=== PATIENT | female | born 1965 | race Caucasian/White ===

== ENCOUNTER → 2017-07-01 08:48 | Outpatient (CLI) | payer BC, SELFPAY ==
--- NOTE | 2017-07-01 08:56 | US_ITS ---
US abdomen limited: HISTORY: ITS.REASON: ELEVATED LIVER ENZYMES ORDERING PHYSICIAN: Darron Chauhan MD PATIENT AGE: 51 years COMPARISON: None FINDINGS: PANCREAS: Unremarkable. No obvious mass or abnormal fluid collection. No ductal dilatation LIVER: Fatty liver RIGHT KIDNEY: Unremarkable. Normal size and echogenicity. No hydronephrosis GALLBLADDER: No stones, gallbladder wall thickening, pericholecystic fluid, or biliary dilatation. There is some sludge noted within the gallbladder. IMPRESSION: Mild amount of gallbladder sludge with fatty liver otherwise negative limited abdominal ultrasound
== END ==
PROVIDERS: Family Provider Family Medicine; PCP Family Medicine; Visit Provider Family Medicine
DX: R74.8 Abnormal levels of other serum enzymes (principal)
CPT/HCPCS: 76705

== ENCOUNTER → 2018-04-21 10:00 | Outpatient (POV) | payer BC, SELFPAY | PROVIDERS: Visit Provider Dermatology | DX: Z00.00 Encounter for general adult medical examination without abnormal findings (principal) ==

== ENCOUNTER → 2019-07-21 16:47 | Outpatient (CLI) | payer BC, SELFPAY ==
--- NOTE | 2019-07-21 16:49 | MM_ITS ---
PROCEDURE: MM DIG SCREENING MAMM BI W/CAD Digital Breast Tomosynthesis Included CLINICAL INDICATION: SCREENING There is no personal or family history of breast cancer. COMPARISON: DIGMAMMS MAMMOGRAM SCREEN-WASH OPERATOR N/C from 11/17/2007 DIGMAMMS MAMMOGRAM SCREEN-WASH OPERATOR N/C from 08/14/2009 DMSB DIG MAMM-SCREEN SOL from 09/21/2013 TECHNIQUE: Standard CC and MLO images and 3D Tomosynthesis was obtained. R2 CAD reviewed. FINDINGS: The breasts are composed primarily of fat with minimal scattered fibroglandular densities in each breast. There are scattered tiny benign-appearing microcalcifications in each breast. There is no suspicious lesion in either breast and no suspicious microcalcifications. IMPRESSION: Fatty type breast parenchyma with no suspicious lesions seen BI-RAD Category: 2 Benign Finding(s) FOLLOW-UP: 1YR 1 Year Follow-up (A letter has been sent to the patient regarding results of the study.) Dictated by: Dr. Jae Dumont MD 07/24/2019 15:[address] Jae Dumnot MD in [place] 07/24/2019 15:50
== END ==
PROVIDERS: Visit Provider Family Medicine
DX: Z12.31 Encounter for screening mammogram for malignant neoplasm of breast (principal)
CPT/HCPCS: 77063; 77067

== ENCOUNTER 2020-07-12 13:01 | Outpatient (RCR) | payer BC, SELFPAY ==
--- NOTE | 2020-07-12 14:02 | HMH.OTOPEV ---
OT Inpatient Evaluation Rehab OT Outpatient Eval Start: 07/12/20 13:32 Freq: Status: Active Protocol: Document 07/12/20 13:32 RMARSHALL (Rec: 07[facility]12[facility]20 14[facility]02 [id number] Electronically Signed By Keysha Mueller OT 07/12/20 13:32 Outpatient Therapy Subjective History Subjective History Pt seen this date for initial evaluation. Pt reports feeling pain in the R shoulder since yesterday afternoon. The shoulder is sore to touch as well as painful to actively move. Pt is able to be passively ranged w/o pain. Pt is unable to recall an event causing this, however, she supects sleeping with her R arm overhead all night to be the cause. Pt is R hand dominant. Pt reports that ice has helped the pain so far, she has also been prescirbed a steroid pack. Chief Complaint Pain,Weakness Symptom Type Ache,Burning Symptoms Relieved By Rest/Positioning,Heat,Ice, Prescription Meds Symptoms Aggravated By Physical Activity,Lifting Prior Functional Limitations None Current Functional Limitations Reaching,Lifting,Housework, Dressing,Sleeping Symptom Description Constant but Variable,Pain at Rest,Activity Dependent Level of pain today (0-10) 1 Pain scale - at its best (0-10) 1 Pain scale - at its worst (0-10) 7 Shoulder/Elbow Eval Shoulder Objective Measurements Shoulder ROM Right Shoulder ROM Limitations Muscle Weakness,Pain Shoulder Abduction Active Range of 85 Motion (degrees) Shoulder Flexion Active Range of Motion 51 (degrees) Query Text: Shoulder External Rotation Active Range 65 of Motion (degrees) Shoulder Internal Rotation Active Range 65 of Motion (degrees) pain with active ROM shoulder exam right standard decreased ROM shoulder exam standard right Shoulder MMT Shoulder Abduction Strength Grade 3- Fair- Shoulder Flexion Strength Grade 3- Fair- Shoulder External Rotation Strength 3- Fair- Grade Shoulder Internal Rotation Strength 3- Fair- Grade Shoulder Strength Patient Testing Sitting Position Shoulder Special Tests Shoulder Dao-Ney Impingement
== END 2020-07-12 13:05 | disposition home or self-care (01) ==
LOC: OT 13:01
PROVIDERS: Visit Provider Nurse Practitioner Family
DX: M25.511 Pain in right shoulder (principal)
CPT/HCPCS: 97014; 97110; 97166; G0283

== ENCOUNTER → 2021-01-17 10:37 | Outpatient (CLI) | payer BC, SELFPAY ==
[2021-01-17 11:40] LABS: Coronavirus 19 IgG Antibody Negative (Negative); Coronavirus 19 IgM Antibody Negative (Negative)
== END ==
PROVIDERS: PCP Family Medicine; Visit Provider Family Medicine
DX: Z20.822 Contact with and (suspected) exposure to COVID-19 (principal)
CPT/HCPCS: 36415; 86328

== ENCOUNTER → 2021-05-31 12:02 | Outpatient (CLI) | payer BC, SELFPAY ==
[2021-05-31 12:33] LABS: Adenovirus,PCR Not Detected (NotDetected); Bordetella Pertussis Not Detected (NotDetected); Chlamydophila Pneumoniae, PCR Not Detected (NotDetected); Coronavirus 19, PCR Not Detected (NotDetected); Coronavirus 229E Not Detected (NotDetected); Coronavirus NL63 Not Detected (NotDetected); Coronavirus OC43 Not Detected (NotDetected); Coronovirus HKU1,PCR Not Detected (NotDetected); Human Metapneumovirus Not Detected (NotDetected); Influenza A, PCR Not Detected (NotDetected); Influenza AH1, 2009 Not Detected (NotDetected); Influenza AH1, PCR Not Detected (NotDetected); Influenza AH3,PCR Not Detected (NotDetected); Influenza B, PCR Not Detected (NotDetected); Mycoplasma Pneumoniae, PCR Not Detected (NotDetected); Parainfluenza 1, PCR Not Detected (NotDetected); Parainfluenza 2, PCR Not Detected (NotDetected); Parainfluenza 3, PCR Not Detected (NotDetected); Parainfluenza 4, PCR Not Detected (NotDetected); Respiratory Syncytial Virus Not Detected (NotDetected)
[2021-05-31 13:36] LABS: Basophils # 0.1 K/mm3 (0-0.2); Basophils % 0.6 % (0.1-2.0); Eosinophils # 0.1 K/mm3 (0.0-0.4); Eosinophils % 0.5 % (0.1-12.0); Hemoglobin 14.2 g/dL (12.2-16.2); Lymphocytes % 17.7 % (10-50); Mean Corpuscular HGB Conc 33.1 g/dL (31.8-35.4); Mean Corpuscular Hemoglobin 30.9 pg (27.0-31.2); Mean Corpuscular Volume 93.4 fl (81-99); Mean Platelet Volume 8.1 fl (7.4-10.4); Monocytes # 0.5 K/mm3 (0.1-1.0); Monocytes % 4.4 % (1.7-9.3); Neutrophils # 8.7 K/mm3 (1.8-7.8); Neutrophils % 76.8 % (37.0-80.0); Platelet Count 266 K/mm3 (142-424); Red Cell Distribution Width 14.6 % (11.5-17.5); White Blood Count 11.3 K/mm3 (4.8-10.8)
[2021-05-31 14:32] LABS: Rhinovirus/Enterovirus Detected (NotDetected)
== END ==
PROVIDERS: PCP Physician Assistant; Visit Provider Physician Assistant
DX: Z20.822 Contact with and (suspected) exposure to COVID-19 (principal); B34.1 Enterovirus infection, unspecified
CPT/HCPCS: 36415; 85025; 87581; 87632; 87798; C9803; U0003; U0005

== ENCOUNTER 2021-08-05 10:55 | Emergency (ER) | payer BC, SELFPAY ==
[2021-08-05 11:17] VITALS: BP 171/93; PULSE 120; RESP 19; TEMP 37.5; O2SAT 95; BMI 37.8
[2021-08-05 11:29] LABS: UTC Influenza A Antigen Positive (Negative); UTC Influenza B Antigen Negative (Negative)
--- NOTE | 2021-08-05 11:29 | HMH.EDUTC ---
[facility] [place] Dis[place] Clinical Impression: Influenza A Disposition: Home, Self-Care Condition on Discharge: Good Instructions: Influenza, DI for Influenza -- Adult Additional Instructions: Drink plenty of fluids. Take tylenol or ibuprofen for pain or fever. Take the medications as directed. Follow up with your regular doctor. GO TO THE ER FOR ANY WORSENING SYMPTOMS The cough medication (promethazine dm) will make you drowsy, so don't drive or operate heavy machinery after taking it. Prescriptions: Promethazine/Dextromethorphan [Promethazine-Dm Syrup] 5 ml PO Q6HP PRN #240 ml PRN Reason: Cough Transmission Status: [facility] Benzonatate [Benzonatate 100mg cap] 100 mg PO TIDP PRN #30 cap PRN Reason: Cough Transmission Status: [facility] by [facility] methylPREDNISolone [Medrol] 4 mg PO DIRECTED 6 Days #21 packet Transmission Status: Received by [facility] Azithromycin [Z-Arnoldo 250mg Tab*] 250 mg PO UD DOSE PK #6 tab Transmission Status: Received by [facility] Referrals: Darron Chauhan MD [Primary Care Provider] - Time of Disposition: 12:08 Medical Decision Making - Medical Records Medical records reviewed: No: I reviewed the patient's medical records. - Allen Inquiry Pt receiving controlled substance: No Vital Signs: 08/05/21 11:17 08/05/21 12:13 Temperature 99.5 F 99.5 F Temperature Source Oral Pulse Rate 120 H Pulse Rate [Left] 120 H Respiratory Rate 19 19 Blood Pressure 171/93 H Blood Pressure [Right Arm] 171/93 H Blood Pressure Mean [Right Arm] 119 02 Sat by Pulse Oximetry 95 - Lab Data Lab results reviewed: Yes: I reviewed the patient's lab results. Lab Results 08/05/21 11:17: Influenza Type A Ag Positive A, Influenza Type B Ag Negative [facility] [place] HPI - General Stated complaint: congestion, sore throat, cough, fever Time Seen by Provider: 08/05/21 11:30 Mode of Arrival: Ambulatory Source of Information: Patient Limitations: No Limitations Description of Symptoms (Recalled from Triage Doc. by RN): pt c/o a fever, cough, bilateral ear aches, sinus pain, a productive cough with green sputum. ongoing since yesterday. grandson has rhino. pt works at [employer] where there has been >100 cases of flu A. according to pt. HEENT Symptoms (Recalled from RN notes): Yes Resp Symptoms (Recalled from RN notes): Yes Skin Symptoms (Recalled from RN notes): No MS Symptoms (Recalled from RN notes): No Functional Status (Recalled from RN notes): wnl - History of Present Illness Provider Complaint: She started feeling bad 4 days ago. She has cough, chest congestion, sinus congestion and she has been having a fever and chills. 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 - Related Data Previous Rx's Medication Instructions Recorded Azithromycin [Z-Arnoldo 250mg Tab*] 250 mg PO UD DOSE PK #6 tab 09/28/17 Benzonatate [Tessalon Perle 100mg 100 mg PO TID PRN #30 cap 09/28/17 Cap] Fluticasone Propionate [Flonase 1 - 2 spr NS DAILY #1 bottle 09/28/17 50mcg nasal spray 16gm] predniSONE [Prednisone 10mg Tab 10 mg PO UD DOSE PK #21 pack 09/28/17 Dose-Pack] Azithromycin [Z-Arnoldo 250mg Tab*] 250 mg PO UD DOSE PK #6 tab 08/05/21 Benzonatate [Benzonatate 100mg 100 mg PO TIDP PRN #30 cap 08/05/21 cap] Promethazine/Dextromethorphan 5 ml PO Q6HP PRN #240 ml 08/05/21 [Promethazine-Dm Syrup] methylPREDNISolone [Medrol] 4 mg PO DIRECTED 6 Days #21 08/05/21 packet Allergies Allergy/AdvReac Type Severity Reaction Status Date / Time No Known Allergies Allergy Verified 09/28/17 11:53 - Worker's Comp Is this a Worker's Comp case?: No [facility] History - Hepatitis A Screen Drug use history?: No High risk sexual behaviors?: No History of sexually transmitted infection?: No Currently employed?: No Childcare worker?: No Do you have indoor plumbing?: Yes Do you have electricity?: Yes Attestat
[2021-08-05 12:13] VITALS: BP 171/93; PULSE 120; RESP 19; TEMP 37.5
== END 2021-08-05 12:15 | disposition home or self-care (01) ==
PROVIDERS: Emergency Provider Nurse Practitioner Family; PCP Family Medicine
DX: J10.1 Influenza due to other identified influenza virus with other respiratory manifestations (principal)
CPT/HCPCS: 87804; 99212; G0463

== ENCOUNTER → 2021-08-09 14:38 | Outpatient (CLI) | payer BC, SELFPAY ==
--- NOTE | 2021-08-09 14:54 | XR_ITS ---
FINAL REPORT CLINICAL HISTORY: INFLUENZA, cough for 1 week, nonsmoker, no sx FINDINGS: Two views of the chest were obtained. The heart size and pulmonary vascularity are within normal limits. The mediastinum is normal. No acute pulmonary abnormality is identified. There is no pneumothorax. The bony thorax is intact. IMPRESSION: No active cardiopulmonary disease. Reviewed, Interpreted and Dictated by Jorge Gonsalves III, MD Transcribed by Alfred Ludwig Authenticated by Jorge Gonsalves III, MD on 08/09/2021 04:05:57 PM [facility]
[2021-08-09 16:11] LABS: Basophils # 0.1 K/mm3 (0-0.2); Basophils % 0.8 % (0.1-2.0); Hematocrit 41.5 % (37.0-47.0); Hemoglobin 13.7 g/dL (12.2-16.2); Lymphocytes % 26.9 % (10-50); Mean Corpuscular HGB Conc 32.9 g/dL (31.8-35.4); Mean Corpuscular Hemoglobin 30.4 pg (27.0-31.2); Mean Corpuscular Volume 92.2 fl (81-99); Mean Platelet Volume 8.5 fl (7.4-10.4); Monocytes # 0.4 K/mm3 (0.1-1.0); Monocytes % 5.7 % (1.7-9.3); Neutrophils # 4.9 K/mm3 (1.8-7.8); Neutrophils % 66.5 % (37.0-80.0); Platelet Count 276 K/mm3 (142-424); Red Blood Count 4.51 M/mm3 (4.20-5.40); Red Cell Distribution Width 14.1 % (11.5-17.5); White Blood Count 7.4 K/mm3 (4.8-10.8)
== END ==
PROVIDERS: PCP Physician Assistant; Visit Provider Physician Assistant
DX: J10.1 Influenza due to other identified influenza virus with other respiratory manifestations (principal)
CPT/HCPCS: 36415; 71046; 85025

== ENCOUNTER 2022-02-09 10:56 | Emergency (ER) | payer BC, SELFPAY ==
--- NOTE | 2022-02-09 11:00 | XR_ITS ---
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 Views: 3 views. COMPARISON: No relevant prior studies available. FINDINGS: Bones/joints: Normal. Soft tissues: Normal. IMPRESSION: No acute findings.
--- NOTE | 2022-02-09 11:00 | XR_ITS ---
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 Views: 3 views. COMPARISON: No relevant prior studies available. FINDINGS: Bones/joints: No acute fracture or dislocation. Moderate narrowing of the patellofemoral and medial tibiofemoral compartments. Soft tissues: Normal. IMPRESSION: No acute findings.
[2022-02-09 11:10] VITALS: BP 141/88; PULSE 82; RESP 18; TEMP 36.8; O2SAT 98; BMI 35.4
--- NOTE | 2022-02-09 11:34 | EXP.UTC ---
Discharge Plan Disposition Patient Disposition: Home, Self-Care Condition: Good Prescriptions Prescriptions: New mupirocin 2 % ointment 1 applic topical BID Qty: 22 0RF cephalexin [cephalexin] 500 mg tablet 500 mg PO BID 7 Days Qty: 14 0RF No Action azithromycin 250 MG tablet 250 mg PO UD DOSE PK Qty: 6 0RF Rx Instructions: Take two (2) tablets today, then one (1) tablet days #2 thru #5 prednisone 10 MG tablets,dose pack 10 mg PO UD DOSE PK Qty: 21 0RF benzonatate 100 MG capsule 100 mg PO TID PRN (Reason: Cough) Qty: 30 0RF fluticasone propionate 120 SPR/BOT bottle 1 - 2 spr NS DAILY Qty: 1 0RF Rx Instructions: 1-2 sprays daily in each nostril promethazine-DM 120 ML syrup 5 ml PO Q6HP PRN (Reason: Cough) Qty: 240 0RF azithromycin 250 MG tablet 250 mg PO UD DOSE PK Qty: 6 0RF Rx Instructions: Take two (2) tablets today, then one (1) tablet days #2 thru #5 benzonatate 100 MG capsule 100 mg PO TIDP PRN (Reason: Cough) Qty: 30 0RF methylprednisolone 4 MG tablets,dose pack 4 mg PO DIRECTED 6 Days Qty: 21 0RF Referrals Follow up/Referrals: Darron Chauhan MD [Primary Care Provider] - See instructions Activity Restrictions/Add. Instructions Additional Instructions/Restrictions: keep area clean and dry Clinical Impressions Clinical Impression: Abrasion Instructions Patient Instructions: DI for Abrasion, Tetanus, Diphtheria, Pertussis (Tdap) Vaccine [facility] [place] HPI General Stated [facility]: [email or web address]1030a Knee pain Mode of Arrival: Ambulatory Source of Information: Patient Limitations: No Limitations Time Seen by Provider: 02/09/22 11:35 Description of Symptoms (Recalled from Triage Doc. by RN): PATIENT C/O INJURIES TO BILATERAL KNEES AFTER FALLING ON A SPEED BUMP OUTSIDE OF [facility] TODAY. BILATERAL ABRASIONS NOTED HEENT Symptoms (Recalled from RN notes): No Resp Symptoms (Recalled from RN notes): No Skin Symptoms (Recalled from RN notes): Yes MS Symptoms (Recalled from RN notes): Yes Functional Status (Recalled from RN notes): WNL History of Present Illness Provider Complaint: 56 yr old female C/O INJURIES TO BILATERAL KNEES AFTER FALLING ON A SPEED BUMP OUTSIDE OF [facility] TODAY. BILATERAL ABRASIONS NOTED Related Data Previous Rx's Medication Instructions Recorded azithromycin 250 mg tablet 250 mg PO UD DOSE PK #6 tabs 09/28/17 benzonatate 100 mg capsule 100 mg PO TID PRN Cough #30 caps 09/28/17 fluticasone propionate 50 1 - 2 spr NS DAILY ##1 09/28/17 mcg/actuation nasal spray,suspension prednisone 10 mg tablets in a dose 10 mg PO UD DOSE PK ##21 09/28/17 pack azithromycin 250 mg tablet 250 mg PO UD DOSE PK #6 tabs 08/05/21 benzonatate 100 mg capsule 100 mg PO TIDP PRN Cough #30 caps 08/05/21 methylprednisolone 4 mg tablets in 4 mg PO DIRECTED 6 days #21 08/05/21 a dose pack packets promethazine-DM 6.25 mg-15 mg/5 mL 5 ml PO Q6HP PRN Cough #240 mL 08/05/21 oral syrup cephalexin 500 mg tablet 500 mg PO BID 7 days #14 tabs 02/09/22 mupirocin 2 % topical ointment 1 applic topical BID #22 grams 02/09/22 Allergies Allergy/AdvReac Type Severity Reaction Status Date / Time No Known Allergies Allergy Verified 09/28/17 11:53 Worker's Comp Is this a Worker's Comp case?: No PFSH PFSH 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
[2022-02-09 11:52] VITALS: BP 141/88; PULSE 82; RESP 18; TEMP 36.8; O2SAT 98
== END 2022-02-09 12:02 | disposition home or self-care (01) ==
PROVIDERS: Emergency Provider Nurse Practitioner Family; PCP Family Medicine
DX: S80.212A Abrasion, left knee, initial encounter (principal); S80.211A Abrasion, right knee, initial encounter; W01.198A Fall on same level from slipping, tripping and stumbling with subsequent striking against other object, initial encounter; Y92.512 Supermarket, store or market as the place of occurrence of the external cause; Z23 Encounter for immunization
CPT/HCPCS: 73562; 90471; 90715; 99213; G0463

== ENCOUNTER → 2022-03-14 11:32 | Outpatient (CLI) | payer BC, SELFPAY | PROVIDERS: PCP Family Medicine; Visit Provider Family Medicine | DX: Z20.822 Contact with and (suspected) exposure to COVID-19 (principal) | CPT/HCPCS: 87275; 87276; C9803; U0003; U0005 ==

== ENCOUNTER 2022-03-25 09:09 | Emergency (ER) | payer BC, SELFPAY ==
[2022-03-25 11:18] LABS: UTC Strep Screen (Rapid) Negative (Negative)
[2022-03-25 11:29] VITALS: BP 170/81; PULSE 84; RESP 16; TEMP 37.1; O2SAT 96; BMI 37.8
--- NOTE | 2022-03-25 11:39 | EXP.UTC ---
Discharge Plan Disposition Patient Disposition: Home, Self-Care Condition: Good Prescriptions Prescriptions: New dicyclomine 10 mg capsule 10 mg PO TID PRN (Reason: cramping) Qty: 12 0RF No Action azithromycin 250 MG tablet 250 mg PO UD DOSE PK Qty: 6 0RF Rx Instructions: Take two (2) tablets today, then one (1) tablet days #2 thru #5 prednisone 10 MG tablets,dose pack 10 mg PO UD DOSE PK Qty: 21 0RF benzonatate 100 MG capsule 100 mg PO TID PRN (Reason: Cough) Qty: 30 0RF fluticasone propionate 120 SPR/BOT bottle 1 - 2 spr NS DAILY Qty: 1 0RF Rx Instructions: 1-2 sprays daily in each nostril promethazine-DM 120 ML syrup 5 ml PO Q6HP PRN (Reason: Cough) Qty: 240 0RF azithromycin 250 MG tablet 250 mg PO UD DOSE PK Qty: 6 0RF Rx Instructions: Take two (2) tablets today, then one (1) tablet days #2 thru #5 benzonatate 100 MG capsule 100 mg PO TIDP PRN (Reason: Cough) Qty: 30 0RF methylprednisolone 4 MG tablets,dose pack 4 mg PO DIRECTED 6 Days Qty: 21 0RF mupirocin 2 % ointment 1 applic topical BID Qty: 22 0RF cephalexin [cephalexin] 500 mg tablet 500 mg PO BID 7 Days Qty: 14 0RF Referrals Follow up/Referrals: Darron Chauhan MD [Primary Care Provider] - See instructions Activity Restrictions/Add. Instructions Additional Instructions/Restrictions: Drink extra fluids with and between meals. If you have difficulty drinking, try very small amounts of water or suck on ice chips. ? Avoid fruit juices, as these do not replace minerals and can actually increase diarrhea. ? Children and adults can use sports drinks to replenish electrolytes. Younger children and infants should use products formulated for children, like oral rehydration solutions. ? Eat food in small amounts and let your stomach recover. ? Get lots of rest. You may feel tired or weak. ? No greasy or fried foods for the next 24-48 hours BRAT diet Bananas Rice Apples and Parker ? Make sure to drink plenty of liquids ? Return if needed ? Straight to ER if any life threatening symptoms ? You was given an outpatient order for diarrhea panel, please collect specimen and bring back to outpatient lab then call back to the [facility] or follow up with family doctor for results ? Follow up with family doctor in the next 48-72 hours if no improvement or any worsening of symptoms Your blood pressure was elevated in the [facility] today Make sure to follow up for re-evaluation of blood pressure Clinical Impressions Clinical Impression: Diarrhea Instructions Patient Instructions: Diarrhea, Dicyclomine Discharge ED Provider: Lesa Cunningham [facility] [place] HPI General Stated complaint: sore throat, diarrhea Mode of Arrival: Ambulatory Source of Information: Patient Limitations: No Limitations Time Seen by Provider: 03/25/22 11:39 Description of Symptoms (Recalled from Triage Doc. by RN): pt comes in with c/o fever that began last night. sore throat, diarrhea. pt states her stool looks like mucus and is cramping. symptoms began march 14 HEENT Symptoms (Recalled from RN notes): No Resp Symptoms (Recalled from RN notes): Yes Skin Symptoms (Recalled from RN notes): No MS Symptoms (Recalled from RN notes): No Functional Status (Recalled from RN notes): n/a History of Present Illness Provider Complaint: Patient state that she had low grade fever last night and had scratchy throat State that she has been having diarrhea and soft stool on and off since the States that she goes several times daily State that she was worried she may have an infection causing her diarrhea like CDiff or something so she came in to get tested Related Data Previous Rx's Medication Instructions Recorded azithromycin 250 mg tablet 250 mg PO UD DOSE PK #6 tabs 09/28/17 benzonatate 100 mg capsule 100 mg PO TID PRN Cough #30 caps 09/28/17 fluticasone propionate
[2022-03-25 12:09] VITALS: BP 170/81; PULSE 84; RESP 16; TEMP 37.1
[2022-03-25 12:14] LABS: Adenovirus F 40/41, stool Not Detected (NotDetected); Astrovirus Not Detected (NotDetected); Campylobacter Not Detected (NotDetected); Cryptosporidium Not Detected (NotDetected); Cyclospora Cayetanesis Not Detected (NotDetected); Entamoeba histolytica Not Detected (NotDetected); Enteroaggregative E coli Not Detected (NotDetected); Enteropathogenic E coli Not Detected (NotDetected); Enterotoxigenic E coli Not Detected (NotDetected); Giardia lamblia Not Detected (NotDetected); Norovirus Not Detected (NotDetected); Plesimonas Shigalloides, PCR Not Detected (NotDetected); Rotavirus A Not Detected (NotDetected); Salmonella, PCR Not Detected (NotDetected); Sapovirus Not Detected (NotDetected); Shiga-like toxin E coli Not Detected (NotDetected); Shigella Enterovasive E coli Not Detected (NotDetected); Vibrio Cholerae Not Detected (NotDetected); Vibrio, PCR Not Detected (NotDetected); Yersinia Entercolitica, PCR Not Detected (NotDetected)
[2022-03-25 15:28] LABS: Clostridium Difficile A/B, PCR Detected (NotDetected)
== END 2022-03-25 12:10 | disposition home or self-care (01) ==
PROVIDERS: Emergency Provider Nurse Practitioner; PCP Family Medicine
DX: J02.9 Acute pharyngitis, unspecified (principal); R19.7 Diarrhea, unspecified; R05.9 Cough, unspecified; F32.A Depression, unspecified; F41.9 Anxiety disorder, unspecified; Z79.52 Long term (current) use of systemic steroids; Z79.899 Other long term (current) drug therapy
CPT/HCPCS: 87507; 87880; 99213; G0463

== ENCOUNTER 2022-06-12 14:24 | Emergency (ER) | payer BC, SELFPAY ==
[2022-06-12 14:24] VITALS: BP 143/83; PULSE 105; RESP 20; TEMP 38.6; O2SAT 96; BMI 37.0
--- NOTE | 2022-06-12 14:57 | EXP.UTC ---
Discharge Plan Disposition Patient Disposition: Home, Self-Care Condition: Good Prescriptions Prescriptions: New azithromycin [Zithromax] 250 mg tablet 250 mg PO UD DOSE PK Qty: 6 0RF Rx Instructions: Take two (2) tablets today, then one (1) tablet days #2 thru #5 benzonatate [benzonatate] 100 mg capsule 100 mg PO TIDP PRN (Reason: Cough) Qty: 30 0RF methylprednisolone 4 mg Tablets,Dose Pack 4 mg PO DIRECTED Qty: 21 0RF No Action azithromycin 250 MG tablet 250 mg PO UD DOSE PK Qty: 6 0RF Rx Instructions: Take two (2) tablets today, then one (1) tablet days #2 thru #5 prednisone 10 MG tablets,dose pack 10 mg PO UD DOSE PK Qty: 21 0RF benzonatate 100 MG capsule 100 mg PO TID PRN (Reason: Cough) Qty: 30 0RF fluticasone propionate 120 SPR/BOT bottle 1 - 2 spr NS DAILY Qty: 1 0RF Rx Instructions: 1-2 sprays daily in each nostril promethazine-DM 120 ML syrup 5 ml PO Q6HP PRN (Reason: Cough) Qty: 240 0RF azithromycin 250 MG tablet 250 mg PO UD DOSE PK Qty: 6 0RF Rx Instructions: Take two (2) tablets today, then one (1) tablet days #2 thru #5 benzonatate 100 MG capsule 100 mg PO TIDP PRN (Reason: Cough) Qty: 30 0RF methylprednisolone 4 MG tablets,dose pack 4 mg PO DIRECTED 6 Days Qty: 21 0RF dicyclomine 10 mg capsule 10 mg PO TID PRN (Reason: cramping) Qty: 12 0RF vancomycin 125 mg capsule 125 mg PO QID 10 Days Qty: 120 0RF mupirocin 2 % ointment 1 applic topical BID Qty: 22 0RF cephalexin [cephalexin] 500 mg tablet 500 mg PO BID 7 Days Qty: 14 0RF Referrals Follow up/Referrals: Darron Chauhan MD [Primary Care Provider] - See instructions Activity Restrictions/Add. Instructions Additional Instructions/Restrictions: Drink plenty of fluids. Take tylenol or ibuprofen for pain or fever. Take the medications as directed. Follow up with your regular doctor. GO TO THE ER FOR ANY WORSENING SYMPTOMS Clinical Impressions Clinical Impression: Acute viral syndrome, Bronchitis Stand Alone Forms Stand Alone Forms: Work/School Release Instructions Patient Instructions: Acute Bronchitis, DI for Acute Bronchitis, DI for Viral Syndrome Discharge ED Provider: Jas Patton [facility] [place] HPI General Stated complaint: Headache fever bodyaches Time Seen by Provider: 06/12/22 14:57 History of Present Illness Provider Complaint: She states that for the past 1 day she has had sinus congestion, sore throat, cough, chest congestion, and malaise. Related Data Previous Rx's Medication Instructions Recorded azithromycin 250 mg tablet 250 mg PO UD DOSE PK #6 tabs 09/28/17 benzonatate 100 mg capsule 100 mg PO TID PRN Cough #30 caps 09/28/17 fluticasone propionate 50 1 - 2 spr NS DAILY ##1 09/28/17 mcg/actuation nasal spray,suspension prednisone 10 mg tablets in a dose 10 mg PO UD DOSE PK ##21 09/28/17 pack azithromycin 250 mg tablet 250 mg PO UD DOSE PK #6 tabs 08/05/21 benzonatate 100 mg capsule 100 mg PO TIDP PRN Cough #30 caps 08/05/21 methylprednisolone 4 mg tablets in 4 mg PO DIRECTED 6 days #21 08/05/21 a dose pack packets promethazine-DM 6.25 mg-15 mg/5 mL 5 ml PO Q6HP PRN Cough #240 mL 08/05/21 oral syrup cephalexin 500 mg tablet 500 mg PO BID 7 days #14 tabs 02/09/22 mupirocin 2 % topical ointment 1 applic topical BID #22 grams 02/09/22 dicyclomine 10 mg capsule 10 mg PO TID PRN cramping #12 caps 03/25/22 vancomycin 125 mg capsule 125 mg PO QID 10 days #120 caps 03/25/22 azithromycin 250 mg tablet 250 mg PO UD DOSE PK #6 tabs 06/12/22 (Zithromax) benzonatate 100 mg capsule 100 mg PO TIDP PRN Cough #30 caps 06/12/22 methylprednisolone 4 mg tablets in 4 mg PO DIRECTED #21 tabs 06/12/22 a dose pack Allergies Allergy/AdvReac Type Severity Reaction Status Date / Time No Known Allergies Allergy Verified 03/25/22 11:31 [facility] Disclaimer: The information contained in
[2022-06-12 15:07] LABS: UTC Influenza A Antigen Negative (Negative); UTC Influenza B Antigen Negative (Negative)
[2022-06-12 15:52] VITALS: BP 143/83; PULSE 105; RESP 20; TEMP 38.6; O2SAT 96
== END 2022-06-12 15:52 | disposition home or self-care (01) ==
PROVIDERS: Emergency Provider Nurse Practitioner Family; PCP Family Medicine
DX: J40 Bronchitis, not specified as acute or chronic (principal)
CPT/HCPCS: 87804; 99212; 99213; C9803; G0463; U0003; U0005

== ENCOUNTER 2022-07-30 15:30 | Outpatient (RCR) | payer BC, SELFPAY | END 2022-07-30 15:35 | disposition home or self-care (01) | LOC: PT 15:30 | PROVIDERS: PCP Family Medicine; Visit Provider Family Medicine | DX: M25.561 Pain in right knee (principal) | CPT/HCPCS: 97110; 97163; 97530 ==

== ENCOUNTER → 2022-12-18 10:15 | Outpatient (CLI) | payer BC, SELFPAY ==
--- NOTE | 2022-12-18 10:20 | MM_ITS ---
PROCEDURE INFORMATION: Exam: MG Bilateral Screening 3D Mammography Exam date and time: 12/18/2022 10:18 AM Age: 57 years old Clinical indication: Screening mammogram TECHNIQUE: Imaging protocol: Bilateral Screening tomosynthesis and 2D mammography including computer-aided detection (CAD) when performed. COMPARISON: 1. MG MM DIG SCREENING MAMM BI W/CAD 07/21/2019 4:51 PM 2. MG DMSB DIG MAMM-SCREEN SOL 09/21/2013 4:48 PM 3. MG DIGMAMMS MAMMOGRAM SCREEN-NURSE OB N/C 08/14/2009 9:26 AM 4. MG DIGMAMMS MAMMOGRAM SCREEN-NURSE OB N/C 11/17/2007 9:26 AM FINDINGS: MAMMOGRAPHY: Breast composition: The breasts are almost entirely fatty. Mass: None. Architectural distortion: No new or suspicious architectural distortion. Calcifications: Stable benign-appearing calcifications are present. No new or suspicious cluster of microcalcifications have developed. Asymmetric density: No new or suspicious asymmetric density is present Skin thickening: None. Axillary adenopathy: None. IMPRESSION: No mammographic evidence of malignancy. Recommend annual screening mammography unless otherwise clinically indicated. ASSESSMENT: BI-RADS category 2: Benign
== END ==
PROVIDERS: PCP Family Medicine; Visit Provider Family Medicine
DX: Z12.31 Encounter for screening mammogram for malignant neoplasm of breast (principal)
CPT/HCPCS: 77063; 77067

== ENCOUNTER 2023-03-30 10:51 | Emergency (ER) | payer BC, SELFPAY ==
[2023-03-30 11:00] VITALS: BP 152/80; PULSE 87; RESP 18; TEMP 37.1; O2SAT 97; BMI 38.7
--- NOTE | 2023-03-30 11:24 | EXP.UTC ---
Discharge Plan Disposition Patient Disposition: Home, Self-Care Condition: Good Prescriptions Prescriptions: New benzonatate [benzonatate] 100 mg capsule 100 mg PO TIDP PRN (Reason: Cough) Qty: 30 0RF methylprednisolone 4 mg Tablets,Dose Pack 4 mg PO DIRECTED Qty: 21 0RF amoxicillin-pot clavulanate 875-125 mg Tablet 1 tab PO Q12H Qty: 20 0RF No Action alprazolam 0.25 mg tablet See Rx Instructions .ROUTE .COMPLEX Patient Comments: TAKE 1/2 (ONE-HALF) TABLET BY MOUTH IN THE MORNING AND 1 TABLET IN THE EVENING Rx Instructions: TAKE 1/2 (ONE-HALF) TABLET BY MOUTH IN THE MORNING AND 1 TABLET IN THE EVENING duloxetine 60 mg capsule,delayed release(DR/EC) 60 mg PO DAILY Patient Comments: TAKE 1 CAPSULE BY MOUTH ONCE DAILY Referrals Follow up/Referrals: Darron Chauhan MD [Primary Care Provider] - See instructions Activity Restrictions/Add. Instructions Additional Instructions/Restrictions: Drink plenty of fluids. Take tylenol or ibuprofen for pain or fever. Take the medications as directed. Follow up with your regular doctor. GO TO THE ER FOR ANY WORSENING SYMPTOMS Clinical Impressions Clinical Impression: Bronchitis, Sinusitis Instructions Patient Instructions: DI for Sinusitis, DI for Acute Bronchitis Discharge ED Provider: Jas Patton [facility] General Stated complaint: COUGH, CONGESTION, FEVER Mode of Arrival: Ambulatory Source of Information: Patient Limitations: No Limitations Time Seen by Provider: 03/30/23 11:23 Description of Symptoms (Recalled from Triage Doc. by RN): Productive cough, nasal congestion, and low grade fever HEENT Symptoms (Recalled from RN notes): Yes Resp Symptoms (Recalled from RN notes): No Skin Symptoms (Recalled from RN notes): No MS Symptoms (Recalled from RN notes): No Functional Status (Recalled from RN notes): n/a History of Present Illness Provider Complaint: She states that for the past 2 weeks she has had sinus congestion. She states that her symptoms are worsening. Related Data Home Medications Medication Instructions Recorded Confirmed alprazolam 0.25 mg tablet See Rx Instructions .Route .COMPLEX 03/30/23 03/30/23 duloxetine 60 mg capsule,delayed 60 mg PO DAILY 03/30/23 03/30/23 release Previous Rx's Medication Instructions Recorded amoxicillin 875 mg-potassium 1 tab PO Q12H #20 tabs 03/30/23 clavulanate 125 mg tablet benzonatate 100 mg capsule 100 mg PO TIDP PRN Cough #30 caps 03/30/23 methylprednisolone 4 mg tablets in 4 mg PO DIRECTED #21 tabs 03/30/23 a dose pack Allergies Allergy/AdvReac Type Severity Reaction Status Date / Time No Known Allergies Allergy Verified 03/30/23 11:17 Worker's Comp Is this a Worker's Comp case?: No [facility] Disclaimer: The information contained in this section may have been updated after the patient was seen, as this information can be updated by other users. Medical History Anxiety Depression Surgical History History of tubal ligation Social History Smoking Status: Unknown if ever smoked alcohol intake: never current occupational status: other Travel in the last 8 weeks: None ROS Obtained: Yes All systems reviewed & no additional complaints except as documented Constitutional Constitutional: Denies fever(s) and Reports poor appetite Eyes Eyes: Reports system reviewed and no additional complaints, except as documented ENT Ears, Nose, Mouth, and Throat: Reports as per HPI Cardiovascular Cardiovascular: Reports system reviewed and no additional complaints, except as documented and Denies chest pain Respiratory Respiratory: Denies shortness of breath, Denies chest congestion, Reports cough, Denies stridor and Denies wheezing Gastrointestinal Gastrointestingal: Cm
[2023-03-30 11:55] VITALS: BP 152/80; PULSE 87; RESP 18; TEMP 37.1; O2SAT 97
== END 2023-03-30 11:55 | disposition home or self-care (01) ==
PROVIDERS: Emergency Provider Nurse Practitioner Family; PCP Family Medicine
DX: J20.9 Acute bronchitis, unspecified (principal); J01.90 Acute sinusitis, unspecified; R50.9 Fever, unspecified; R05.9 Cough, unspecified; R09.81 Nasal congestion
CPT/HCPCS: 99212; 99214; G0463

== ENCOUNTER 2023-06-06 10:17 | Outpatient (CLI) | payer BC, SELFPAY ==
--- NOTE | 2023-06-06 10:29 | ECG_ITS ---
APPROVED REPORT Exam: Resting ECG HR:82 bpm ECG Measurements Heart Rate [address] 154 P 50 QRSd 91 QRS 28 QT 354 T 26 QTc 393 Conclusion SINUS RHYTHM Late R wave progression Isolated Q-wave in III ABNORMAL ECG UNCONFIRMED REPORT Electronically signed by : Joe Bustillo MD 06/07/2023 13:41:32
[2023-06-06 11:10] LABS: Basophils # 0.1 K/mm3 (0-0.2); Basophils % 0.9 % (0.1-2.0); Eosinophils # 0.2 K/mm3 (0.0-0.4); Eosinophils % 1.7 % (0.1-12.0); Hematocrit 38.3 % (37.0-47.0); Hemoglobin 14.6 g/dL (12.2-16.2); Lymphocytes # 2.8 K/mm3 (0.7-4.5); Lymphocytes % 30.5 % (10-50); Mean Corpuscular HGB Conc 38.2 g/dL (31.8-35.4); Mean Corpuscular Hemoglobin 34.5 pg (27.0-31.2); Mean Corpuscular Volume 90.4 fl (81-99); Mean Platelet Volume 8.1 fl (7.4-10.4); Monocytes # 0.5 K/mm3 (0.1-1.0); Monocytes % 5.2 % (1.7-9.3); Neutrophils # 5.6 K/mm3 (1.8-7.8); Neutrophils % 61.7 % (37.0-80.0); Platelet Count 221 K/mm3 (142-424); Red Blood Count 4.24 M/mm3 (4.20-5.40); Red Cell Distribution Width 14.1 % (11.5-17.5); White Blood Count 9.1 K/mm3 (4.8-10.8)
[2023-06-06 11:34] LABS: Chloride 103 mmol/L (98-107); Potassium 4.8 mmoL/L (3.5-5.1); Sodium 140 mmol/L (136-145)
[2023-06-06 11:37] LABS: Alanine Aminotransferase 99 U/L (12-78); Albumin Level 4.1 g/dl (3.5-5.0); Albumin/Globulin Ratio 1.4 (1.1-1.8); Alkaline Phosphatase 94 U/L (38-126); Anion Gap 11.8 mEq/L (5-15); Aspartate Amino Transferase 76 U/L (14-36); Blood Urea Nitrogen 20 mg/dl (7-17); Calcium 9.3 mg/dl (8.4-10.2); Carbon Dioxide 30 mmol/L (22.0-30.0); Creatine Kinase 63 U/L (30-135); Estimated Glomerular Filt Rate 74 ml/min (>60); GFR (African American) 90 ML/MIN (>60); Globulin 2.9 g/dL (1.3-3.2); Glucose 81 mg/dl (74-100)
[2023-06-06 11:47] LABS: CKMB Relative Index 1.6 U/L (0-4.0)
[2023-06-06 11:48] LABS: NT Pro Brain Natriuretic Pep. 36.6 pg/mL (0-125)
[2023-06-06 12:02] LABS: Troponin I < 0.01 ng/ml (0.00-0.034)
[2023-06-06 13:16] LABS: Thyroid Stimulating Hormone 2.89 uIU/mL (0.465-4.68)
== END 2023-06-06 23:59 ==
LOC: LAB 10:19
PROVIDERS: PCP Family Medicine; Visit Provider Physician Assistant
DX: R06.02 Shortness of breath (principal); R07.9 Chest pain, unspecified; R00.2 Palpitations
CPT/HCPCS: 36415; 80053; 82550; 82553; 83880; 84443; 84484; 85025; 93005; 93225

== ENCOUNTER 2023-07-07 16:08 | Outpatient (CLI) | payer BC, SELFPAY ==
[2023-07-07 16:40] LABS: Hemoglobin A1C 5.1 % (4.0-6.0)
[2023-07-07 17:04] LABS: Alanine Aminotransferase 80 U/L (12-78); Albumin Level 4.3 g/dl (3.5-5.0); Alkaline Phosphatase 102 U/L (38-126); Aspartate Amino Transferase 66 U/L (14-36); Bilirubin,Indirect 1.1 mg/dL (0.0-0.9); Bilirubin,Total 1.1 mg/dl (0.2-1.3); Bilirubin,Unconjugated 1.1 mg/dL (0.0-1.1); Chol/HDL Ratio 4.4 (1-3.5); Cholesterol 198 mg/dl (140-200); HDL Cholesterol 45 mg/dl (40-60); Total Protein,Serum 7.1 g/dl (6.3-8.2); Triglycerides 140 mg/dl (30-150); VLDL Cholesterol 28 mg/dL (0-40)
[2023-07-07 17:15] LABS: Direct LDL Cholesterol 97.58 mg/dL (100-129)
== END 2023-07-07 23:59 ==
LOC: LAB 16:09
PROVIDERS: PCP Family Medicine; Visit Provider Internal Medicine
DX: R07.9 Chest pain, unspecified (principal); R00.2 Palpitations; R79.89 Other specified abnormal findings of blood chemistry; R94.31 Abnormal electrocardiogram [ECG] [EKG]; K30 Functional dyspepsia; Z13.1 Encounter for screening for diabetes mellitus; Z79.899 Other long term (current) drug therapy
CPT/HCPCS: 36415; 80061; 80076; 83036

== ENCOUNTER 2023-07-15 10:42 | Outpatient (CLI) | payer BC, SELFPAY ==
--- NOTE | 2023-07-15 10:43 | CA_ITS ---
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: Dyan White, RCS, RVS Ht: 5 ft 1 in Wt: 210lbs BSA: 1.93 BP: 148/81 mmHg Indications: CP, Abn EKG, Palpitations 2D Dimensions IVSd 1.16 cm LVEF (Visual) 78.60 % PWd 1.27 cm LA Volume 43.30 mL LVDd 4.92 cm LA Volume Index 21.90 mL/m2 (M/F) 16-34 LVDs 2.59 cm Left Atrium 3.69 cm M-Mode Dimensions RVDd 1.78 cm (0.9-2.6) LA Diam 3.44 cm (1.9-4.0) LVDd 4.91 cm (3.5-5.7) LVDs 3.70 cm (3.5-5.7) IVSd 1.08 cm (0.6-1.1) PWd 0.91 cm (0.6-1.1) EF (Teich) 48.80% EPSs 0.38 cm FS 24.60% EDV (Teich) 113.40 mL ESV (Teich) 58.10 mL LV Diastology E Decel Time 260 (160-240 msec) E/A Ratio 0.87 MED A' 10.50 cm/s LAT A' 13.30 cm/s Aortic Valve ELISE Index 1.26 cm2/m2 AoV Peak Jose. 135.0 (50-130 cm/s) AI PHT 509.00 ms AO Peak GR. 7.30 mmHg AO Mean GR. 3.70 (<5 mmHg) AO VTI 30.2 (18-25 cm) ELISE (VTI) 2.49 (2.5-4.5 cm2) Mitral Valve MV A Velocity 85.0 (40-130 cm/s) E/A Ratio 0.87 Pulmonary Valve PV Peak Velocity 76.0 (50-150 cm/s) Left Ventricle The left ventricle is normal size. The left ventricular systolic function is normal. The left ventricular ejection fraction is within the normal range. There is increased LV wall thickness. There is normal LV segmental wall motion. The left ventricular diastolic function is normal. LVEF is 55%. Right Ventricle The right ventricle is normal size. The right ventricular systolic function is normal. Atria The left atrium size is normal. The right atrium size is normal. Aortic Valve The aortic valve is mildly thickened. Mild aortic regurgitation. There is no aortic valvular stenosis. Mitral Valve The mitral valve leaflets are mildly thickened. No evidence of mitral valve stenosis. Trace mitral regurgitation. Tricuspid Valve The tricuspid valve leaflets are thin and pliable. Trace tricuspid regurgitation. There is insufficient TR jet to estimate RVSP. Pulmonic Valve The pulmonary valve is normal in structure. Trace pulmonic regurgitation. Great Vessels The aortic root is not well-visualized. IVC is normal in size and collapses >50% with inspiration. Pericardium There is no pericardial effusion. Other Information Study Quality: Technically Difficult Conclusion Technically difficult study due to poor acoustic windows. Normal biventricular systolic function. Mild AI. Electronically signed by : Alyssa Garcia MD 07/18/2023 20:46:42
--- NOTE | 2023-07-15 11:20 | NM_ITS ---
APPROVED REPORT Exam: Nuclear Stress Test Indication: palpitations Patient Location: Outpatient Stress Tech: Flaquita Eddy ID Tech:Otilia ChavezANJELT, RT (R)(N) Ht: 5 ft 1 in Wt: 200 lbs Bra Size: 42c HR: 70 bpm BP: 151/61 mmHg BSA: 1.89 m2 Rhythm: NSR TID: 1.29 BMI: 37.7 History: palpitations Procedure: Patient received 0.4 mg of intravenous Lexiscan, resting heart rate 70 bpm, resting blood pressure 151/61 mmHg, with Lexiscan maximum heart rate achieved was 95 bpm which is 85 % of the maximum predicted heart rate and blood pressure was 151/61 mmHg. With Lexiscan, patient denied any complaint of chest pain. Cardiac Stress and Resting SPECT Images: Cardiac Stress and Resting SPECT images were obtained using technetium 99m Myoview 30.3 mCi stress and 10.60 mCi at rest. Resting and stress imaging in supine and prone positions demonstrate no evidence of focal fixed or reversible perfusion defects. There is increased transient ischemic dilatation ratio (TID 1.29), suggestive of possible multivessel disease or balanced ischemia. Gated imaging demonstrates normal global and regional LV systolic function. LVEF is calculated at 57%. Conclusion: No evidence of focal fixed or reversible perfusion defects. There is increased transient ischemic dilatation ratio (TID 1.29), suggestive of possible multivessel disease or balanced ischemia. Gated imaging demonstrates normal global and regional LV systolic function. LVEF is calculated at 57%. Electronically signed by : Alyssa Garcia MD 07/16/2023 13:32:12
[2023-07-15] MEDS: SODIUM CHLORIDE 0.9% 10ML SYR (RAD ONLY) 10 ML IV ×2 (13:49)
[2023-07-15] MEDS: ISOTOPE MYOVIEW (PER STUDY) 1 DOSE IV (13:49)
[2023-07-15] MEDS: REGADENOSON 0.4MG/5ML SYRINGE 0.400000000000000022 MG IV (13:49)
--- NOTE | 2023-07-15 14:56 | CA_ITS ---
APPROVED REPORT Exam: Pharmacologic Technologist: Sandra Cam Ht: 5 ft 1 in Wt: 200 lbs BSA: 1.89 m2 HR: 64 bpm BP: 151/61 mmHg Rhythm: NSR Medical History Medications: Alprazolam,,,,, Vitamin D3,,,,, DulOXETINE,,,,, Aspirn,,,,, Metoprolol Succinate ER,,,,, Stress Test Details Test: LEXISCAN HR Resting HR: 70 bpm Max Heart Rate (APMHR): 164 bpm Max HR Achieved: 95 bpm Target HR (85% APMHR): 139 bpm % of APMHR: 58 Recovery HR: 81 bpm BP Resting BP: 151.0/61.0 mmHg Max BP: 151.0/61.0 mmHg Recovery BP: 147.0/65.0 mmHg ECG Resting ECG: Sinus rhythm Stress ECG: No significant ST changes Arrhythmia: None Clinical Exercise duration: 04:01 min Highest Stage Achieved: Stress ECG Conclusion Symptoms: Dyspnea, dizziness Arrhythmias/Ectopy: None ST-T Changes: No significant ST changes Conclusion: EKG portion unremarkable due to Lexiscan infusion. Myoview images are reported separately. Test Summary REST 13:21 . . 70 . 151/ 61 . . Stage 1 . . . . . . . Myoview Injected Stage 1 01:00 . . 93 . . . . Stage 2 01:00 . . 90 . . . . Stage 3 01:00 . . 85 . 141/ 67 . . Stage 4 01:00 . . 80 . 146/ 64 . . Stage 4 01:01 . . 80 . 146/ 64 . Stop exercise at 04:01 RECOVERY 01:00 . . 79 . 136/ 66 . . RECOVERY 02:00 . . 79 . 147/ 65 . . RECOVERY 02:20 . . 81 . 147/ 65 . . Electronically signed by : Alyssa Garcia MD 07/16/2023 13:30:36
== END 2023-07-15 23:59 ==
LOC: RT 10:43
PROVIDERS: PCP Family Medicine; Visit Provider Internal Medicine
DX: R00.2 Palpitations (principal); R94.31 Abnormal electrocardiogram [ECG] [EKG]; R07.9 Chest pain, unspecified; R79.89 Other specified abnormal findings of blood chemistry; K30 Functional dyspepsia
CPT/HCPCS: 78452; 93017; 93018; 93306; A9502; J2785

== ENCOUNTER 2023-08-13 09:05 | Outpatient (CLI) | payer BC, SELFPAY ==
--- NOTE | 2023-08-13 09:12 | XR_ITS ---
FINAL REPORT TECHNIQUE: Bone mineral density was calculated of the lumbar spine and hip. CLINICAL HISTORY: SCREEING COMPARISON: None FINDINGS: Using L1-4, the bone mineral density of the spine is 0.932 g/cm2, corresponding to T-score of -1. Using the left hip, the bone mineral density of the femoral neck is 0.752 g/cm2, corresponding to a T-score of -0.9. Using the right hip, the bone mineral density of the femoral neck is 0.9 g/cm?, corresponding to a T-score of 0.5. NOTE: T-score: Standard deviation compared with peak bone mass of young adult mean. *Following the recommendations of the International Society of Bone densitometry, classification of hip BMD is based on the lower of two T-scores; total hip or femoral neck. IMPRESSION: Normal bone mineral density of the lumbar spine and bilateral hips. Reviewed, Interpreted and Dictated by Jorge Gonsalves III, MD Transcribed by Jessica Tripp Authenticated and [facility]
== END 2023-08-13 23:59 ==
LOC: RAD 09:07
PROVIDERS: PCP Family Medicine; Visit Provider Family Medicine
DX: Z78.0 Asymptomatic menopausal state (principal)
CPT/HCPCS: 77080

== ENCOUNTER 2023-08-20 15:23 | Outpatient (CLI) | payer BC, SELFPAY ==
--- NOTE | 2023-08-20 15:26 | XR_ITS ---
FINAL REPORT CLINICAL HISTORY: RT KNEE PAIN..fall at [employer] 2 years ago COMPARISON: 02/09/2022 FINDINGS: Right knee Three views were obtained. There is no acute fracture or dislocation. There are mild and moderate degenerative changes. Small joint effusion is identified. IMPRESSION: Degenerative changes and small effusion. Findings are similar to previous. Reviewed, Interpreted and Dictated by Jorge Gonsalves III, MD Transcribed by Gissel Mays Authenticated and [facility]
== END 2023-08-20 23:59 ==
LOC: RAD 15:23
PROVIDERS: PCP Family Medicine; Visit Provider Physician Assistant
DX: M25.561 Pain in right knee (principal)
CPT/HCPCS: 73562

== ENCOUNTER 2023-08-22 11:54 | Outpatient (CLI) | payer BC, SELFPAY ==
[2023-08-22] VITALS (10 sets, daily range): BP systolic 113–152; BP diastolic 65–91; PULSE 54–78; RESP 16–18; O2SAT 97–100; BMI 39.4
--- NOTE | 2023-08-22 11:55 | CT_ITS ---
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 A noncontrast coronary calcium scan was performed. A CT attenuation threshold of 130 Hounsfield units (HU) was used for the detection of calcium in contiguous voxels of 1 sq mm in area to be counted as individual lesions. Bolus tracking in the ascending aorta with a threshold of 180 HU was performed. Immediately afterwards, ECG synchronized cardiac CT was then performed from the cardiac base to apex using retrospective gating with ECG tube current modulation. A total of 85 mL of Isovue 370 mg/mL contrast medium was administered at 5 mL/sec followed by a saline flush using a biphasic injection protocol. A tube voltage of 120 KVp was used. The patient received the following medications prior to the cardiac CT. 75 mg of oral metoprolol 15 mg of oral ivabradine 0.8 mg of sublingual nitroglycerin The average heart rate at the time of acquisition was 52 bpm and regular. Image Reconstruction Transaxial images were reconstructed at 0.67 mm slide thickness. Data was reviewed interactively on an advanced workstation capable of 2 and 3-dimensional displays in all conventional reconstruction formats, including multiplanar reformations, maximum intensity projections, curved multiplanar reformations, and volume rendered reconstructions. When applicable, selected routine images describing the relevant coronary anatomy and pathology were saved and sent to PACS. Complications None Technical Quality Overall image quality was good. Coronary artery opacification was adequate. Total DLP (Dose-Length Product) is 1037.9 mGy-cm. The reported value represents the total of one or more individual components during the CT acquisition of this date and at this time, and as such, the same value may appear in more than one CT report depending on the interpreting/reporting physicians. COMPARISON None FINDINGS CT Coronary Calcium Scoring LMA (Left Main Artery) = 2 LAD (Left Anterior Descending) = 0 LCX (Left Coronary Circumflex) = 0 RCA (Right Coronary Artery) = 0 Total Calcium Score = 2 using the AJ-130 method. The observed calcium score of 2 is at 72nd percentile for subjects of the same age, sex, and race/ethnicity. The interpretation of the calcium heart score is based on the following continuum*: 0 = no calcified plaque detected (risk of coronary artery disease is very low ??? less than 5%) 1-10 = calcium detected in extremely minimal levels (risk of coronary diseases is still low ??? less than 10%) 11-100 = mild levels of plaque detected with certainty (mild or minimal narrowing of heart arteries is likely) 101-400 = definite,at least moderate levels of plaque detected (relatively high risk of a heart attack within 3-5 years) >401-999 = extensive levels of plaque detected (high risk of heart attack, high levels of vascular disease are present, high likelihood of at least one significant coronary narrowing) *The calcium heart score quantifies the burden of coronary calcification/plaque in the coronary arteries. The calcium heart score is not able to evaluate the presence or burden of non-calcified (i.e. soft) plaque. There is no identifiable calcification in the aortic valve, mitral annulus or mitral valve, pericardium, or myocardium. Coronary CT Angiography The coronary arterial system is right dominant. Quantitative Stenosis Grading: Left Main (LM): The left main originates normally from the left sinus of Valsalva. The LM bifurcates into the left anterior descending artery and left circumflex artery. There is 1 focus of calcified plaque in the LM, but with no luminal stenosis. Left Anterior Descending (LAD) and Diagonal Branches: The LAD gives off 2 diagonal branches. The LAD and its branches are patent with no evidence of atherosclerosis. There is no evidence of LAD-myocardial bridge. Left Circumflex (LCX) and Obtuse Marginals (OM): The LCX gives off 1 Obtuse Marginal (OM) branch(es). The LCX and its branches are patent with no evidence of atherosclerosis. Right Coronary Artery (RCA): The RCA originates normally from the right sinus of Valsalva. The RCA gives off a posterior descending artery (PDA) and posterolateral (PL) branches. The RCA and its branches are patent with no evidence of atherosclerosis. Non-Coronary Cardiac Findings: Analysis of the left ventricular (LV) structure and function was performed after 3-D reconstruction of the LV from axial images, with user-corrected automatic contouring for assessment of LV volumes and user-defined reconstruction from oblique planes for measurement of 3-D cardiac structure and function. -The left ventricle systolic function is normal. -There is no left atrial appendage filling defect. Two right pulmonary veins and two left pulmonary veins drain normally into the left atrium. -No pericardial thickening or calcification. -Central and branch pulmonary arteries in the [id number] are unremarkable. -Thoracic aorta within the visualized thoracic aortic-branches in the [id number] is unremarkable. Extracardiac Structures Incidental finding of calcified mediastinal lymphadenopathy. IMPRESSION -Minimal coronary calcification with an Agatston score = 2 using the AJ-130 method. -The observed calcium score of 2 is at 72nd percentile for subjects of the same age, sex, and race/ethnicity. -No evidence of significant flow-limiting atherosclerosis of the coronary arteries. -CAD-RADS 1. Management recommendations per ACC/AHA guidelines*, as clinically appropriate. -Incidental finding of calcified mediastinal lymphadenopathy. Clinical correlation is suggested. *Recommendations: CAD RADS 0: Reassurance. Consider non-atherosclerotic causes of chest pain. CAD RADS 1: Consider non-atherosclerotic causes of chest pain. Consider preventive therapy and risk factor modification. CAD RADS 2: Consider non-atherosclerotic causes of chest pain. Consider preventive therapy and risk factor modification, particularly for patients with nonobstructive plaque in multiple segments. CAD RADS 3: Consider further functional testing. Consider symptom-guided anti-ischemic and preventive pharmacotherapy as well as risk factor modification per published guideline statements. CAD RADS 4A: Consider further functional testing or invasive coronary angiography with revascularization per published guideline statements. Consider symptom-guided anti-ischemic and preventive pharmacotherapy as well as risk factor modification per published guideline statements. CAD RADS 4B: Invasive coronary angiography recommended with revascularization per published guideline statements. Consider symptom-guided anti-ischemic and preventive pharmacotherapy as well as risk factor modification per published guideline statements. CAD RADS 5: Consider invasive angiography and/or viability assessment with revascularization per published guideline statements. Consider symptom-guided anti-ischemic and preventive pharmacotherapy as well as risk factor modification per published guideline statements. CRITICAL RESULT None COMMUNICATION Per this written report The coronary and cardiac findings of this CCTA were reviewed, reported, and signed by Jairo Garcia MD (Early Breastfeeding Care Specialist) Conclusion Electronically signed by : Alyssa Garcia MD 08/27/2023 15:20:15
[2023-08-22] MEDS: METOPROLOL TARTRATE 25MG TABLET 25 MG (12:31)
[2023-08-22] MEDS: METOPROLOL TARTRATE 50MG TABLET PO (12:32)
[2023-08-22] MEDS: IVABRADINE HCL 7.5MG TABLET PO (12:32)
[2023-08-22] MEDS: NITROGLYCERIN 0.4MG SL TABLET SL (13:30)
[2023-08-22] MEDS: 0.9 % SODIUM CHLORIDE 50 ML VIAL 100 ML IV (13:52)
[2023-08-22] MEDS: SODIUM CHLORIDE 0.9% 10ML SYR (RAD ONLY) 10 ML IV (13:53)
[2023-08-22] MEDS: IOPAMIDOL-370 (76%);100ML BOTTLE 170 ML IV (13:53)
== END 2023-08-22 14:35 | disposition home or self-care (01) ==
PROVIDERS: PCP Family Medicine; Visit Provider Internal Medicine
DX: R07.9 Chest pain, unspecified (principal); R07.89 Other chest pain; R93.1 Abnormal findings on diagnostic imaging of heart and coronary circulation; R00.2 Palpitations; R94.31 Abnormal electrocardiogram [ECG] [EKG]; R79.89 Other specified abnormal findings of blood chemistry; K30 Functional dyspepsia
CPT/HCPCS: 75571; 75574; Q9967

== ENCOUNTER 2023-10-07 07:46 | Outpatient (CLI) | payer BC, SELFPAY ==
--- NOTE | 2023-10-07 07:47 | US_ITS ---
FINAL REPORT CLINICAL HISTORY: Elevated LFT FINDINGS: Sonographic images of the right upper quadrant were obtained. The pancreas is partially obscured. There is fatty infiltration of the liver. The gallbladder appears normal without evidence of gallstones.There is no evidence of biliary ductal dilatation.The common duct measures 4mm. Limited images of the right kidney are unremarkable. IMPRESSION: Fatty infiltration of the liver, otherwise unremarkable right upper quadrant ultrasound. Reviewed, Interpreted and Dictated by Leo Barrow MD Transcribed by Didi Sepulveda Authenticated and [facility]
== END 2023-10-07 23:59 | disposition home or self-care (01) ==
LOC: RAD 07:47
PROVIDERS: PCP Family Medicine; Visit Provider Nurse Practitioner
DX: R79.89 Other specified abnormal findings of blood chemistry (principal)
CPT/HCPCS: 76705

== ENCOUNTER 2023-10-20 09:47 | Outpatient (CLI) | payer BC, SELFPAY ==
[2023-10-20 10:39] LABS: INR 0.99 (0.9-1.1); Prothrombin Time 10.7 seconds (10.1-12.5)
[2023-10-20 11:30] LABS: Alanine Aminotransferase 78 U/L (12-78); Albumin Level 3.8 g/dl (3.5-5.0); Albumin/Globulin Ratio 1.3 (1.1-1.8); Alkaline Phosphatase 85 U/L (38-126); Anion Gap 10.7 mEq/L (5-15); Aspartate Amino Transferase 54 U/L (14-36); Bilirubin,Total 1.2 mg/dl (0.2-1.3); Blood Urea Nitrogen 16 mg/dl (7-17); Calcium 9.5 mg/dl (8.4-10.2); Carbon Dioxide 31 mmol/L (22.0-30.0); Chloride 105 mmol/L (98-107); Estimated Glomerular Filt Rate 86 ml/min (>60); GFR (African American) 104 ML/MIN (>60); Glucose 99 mg/dl (74-100); Potassium 4.7 mmoL/L (3.5-5.1); Sodium 142 mmol/L (136-145); Total Protein,Serum 6.8 g/dl (6.3-8.2)
[2023-10-21 09:15] LABS: CA 19-9 16 U/mL (0-35)
[2023-10-22 12:08] LABS: Fibrosis Score 0.22; Fibrosis Stage F0-F1; NASH Grade N3-SEVERE NASH; NASH Score 0.75; Steatosis Grade S2-S3; Steatosis Score 0.62
[2023-10-22 12:09] LABS: Alpha 2-Macroglobulins, Qn 172; Apolipoprotein A-1 129; Haptoglobin 108
[2023-10-22 12:10] LABS: ALT (SGPT) P5P 72; AST (SGOT) P5P 48; Bilirubin, Total 0.8; GGT 16
[2023-10-22 12:11] LABS: Cholesterol, Total 164; Glucose 97; Triglycerides 160
== END 2023-10-20 23:59 | disposition home or self-care (01) ==
LOC: LAB 09:48
PROVIDERS: PCP Family Medicine; Visit Provider Nurse Practitioner
DX: R79.89 Other specified abnormal findings of blood chemistry (principal); K76.0 Fatty (change of) liver, not elsewhere classified
CPT/HCPCS: 36415; 80053; 85610; 86301

== ENCOUNTER 2024-01-17 11:42 | Emergency (ER) | payer BC, SELFPAY ==
[2024-01-17 12:00] VITALS: BP 158/71; PULSE 85; RESP 19; TEMP 36.9; O2SAT 94; BMI 39.6
--- NOTE | 2024-01-17 12:25 | EXP.UTC ---
Discharge Plan Disposition Patient Disposition: Home, Self-Care Condition: Good Prescriptions Prescriptions: New azithromycin 250 mg tablet 250 mg PO DIRECTED Qty: 6 0RF Rx Instructions: Take two (2) tablets on day #1, then one (1) tablet day #2 thru #5 fluticasone propionate 50 mcg/actuation spray,suspension 1 spray intranasal DAILY Qty: 9.9 0RF No Action alprazolam 0.25 mg tablet 0.25 mg PO DAILY Patient Comments: TAKE 1/2 (ONE-HALF) TABLET BY MOUTH IN THE MORNING AND 1 IN THE EVENING metoprolol succinate 25 mg tablet extended release 24 hr 25 mg PO DAILY Patient Comments: TAKE 1 TABLET BY MOUTH ONCE DAILY naproxen 500 mg tablet 500 mg PO DAILY duloxetine 60 mg capsule,delayed release(DR/EC) 60 mg PO DAILY Patient Comments: TAKE 1 CAPSULE BY MOUTH ONCE DAILY Referrals Follow up/Referrals: Darron Chauhan MD [Primary Care Provider] - See instructions Activity Restrictions/Add. Instructions Additional Instructions/Restrictions: Start antibiotic patient to take as ordered for a full length of time even if you feel better. Sinus infections do not get better overnight. It may take 2-3 days to notice much improvement so be sure to use conservative measures as discussed for symptoms. Flonase 1 spray each nostril daily to help with nasal congestion, sinus and ear pressure/information Increase fluids Humidifier/vaporizer as needed Tylenol and ibuprofen as needed for fever or pain. If symptoms do not improve or get worse return or be seen in the ER Follow-up with primary care this week Clinical Impressions Clinical Impression: Sinusitis Instructions Patient Instructions: DI for Sinusitis Print Language Print Language: Cuban Discharge ED Provider: Keith ([facility] [place] HPI General Stated complaint: head congestion, cough Mode of Arrival: Ambulatory Source of Information: Patient Limitations: No Limitations Time Seen by Provider: 01/17/24 12:25 Description of Symptoms (Recalled from Triage Doc. by RN): PATIENT C/O COUGH, CONGESTION, GREEN/YELLOW NASAL DRAINAGE, AND SORE THROAT FRO APPROX 1 WEEK HEENT Symptoms (Recalled from RN notes): No Resp Symptoms (Recalled from RN notes): No Skin Symptoms (Recalled from RN notes): No MS Symptoms (Recalled from RN notes): No Functional Status (Recalled from RN notes): WNL History of Present Illness Provider Complaint: 58 yr old female presents for c/o head congestion, cough, sinus pressure, yellow/green nasal congestion and sore throat for 1 week Related Data Home Medications ?Medication ?Instructions ?Recorded ?Confirmed alprazolam 0.25 mg tablet 0.25 mg PO DAILY 01/17/24 01/17/24 duloxetine 60 mg capsule,delayed 60 mg PO DAILY 01/17/24 01/17/24 release metoprolol succinate 25 mg 25 mg PO DAILY 01/17/24 01/17/24 tablet,extended release 24 hr naproxen 500 mg tablet 500 mg PO DAILY 01/17/24 01/17/24 Previous Rx's ?Medication ?Instructions ?Recorded azithromycin 250 mg tablet 250 mg PO DIRECTED #6 tabs 01/17/24 fluticasone propionate 50 1 spray intranasal DAILY #9.9 mL 01/17/24 mcg/actuation nasal spray,suspension Allergies Allergy/AdvReac Type Severity Reaction Status Date / Time No Known Allergies Allergy Verified 01/01/24 13:44 Worker's Comp Is this a Worker's Comp case?: No [facility] Disclaimer: The information contained in this section may have been updated after the patient was seen, as this information can be updated by other users. 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) Smoking Status: Never smoker alcohol intake: current alcohol intake frequency: a few times a month substance use type: denies use current occupational status: other Travel in the last 8 weeks: None caffeine: Yes physical activity: walking do you feel safe at home: Yes victim of physical abuse: No victim of emotional abuse: No victim of sexual abuse: No would you like helpful sources: No ROS Obtained: Yes All systems reviewed & no additional complaints except as documented Constitutional Constitutional: Reports system reviewed and no additional complaints, except as documented Eyes Eyes: Reports system reviewed and no additional complaints, except as documented ENT Ears, Nose, Mouth, and Throat: Reports system reviewed and no additional complaints, except as documented, Reports as per HPI, Reports nasal congestion, Reports nasal discharge, Reports post nasal drip, Reports sinus pain, Reports sinus pressure and Reports sore throat Cardiovascular Cardiovascular: Reports system reviewed and no additional complaints, except as documented Respiratory Respiratory: Reports system reviewed and no additional complaints, except as documented Gastrointestinal Gastrointestingal: Reports system reviewed and no additional complaints, except as documented Integumentary/Breasts Skin/Breast: Reports system reviewed and no additional complaints, except as documented Neurologic Neurologic: Reports system reviewed and no additional complaints, except as documented Endocrine Endocrine: Reports system reviewed and no additional complaints, except as documented Hematologic/Lymphatic Henatologic/Lymphatic: Reports system reviewed and no additional complaints, except as documented Allergic/Immunologic Allergic/Immunologic: Reports system reviewed and no additional complaints, except as documented Physical Exam General General appearance: alert and in no apparent distress Head Head exam: atraumatic Eye Eye exam: Present PERRL ENT ENT exam: Present mucous membranes moist and TM's normal bilaterally Expanded ENT Exam Nose exam: Present sinus tenderness Respiratory Respiratory exam: Present normal lung sounds bilaterally Cardiovascular Cardiovascular exam: Present regular rate and normal rhythm Neurological Exam Neurological exam: Present alert and oriented X3 Skin Skin exam: Present warm and intact Medical Decision Making Medical Records Medical records reviewed: Yes I reviewed the patient's medical records. Allen Inquiry Pt receiving controlled substance: No Allen was queried for this patient: No Vital Signs: 01/17/24 12:00 Temperature 98.5 F Temperature Source Oral Pulse Rate [Left Brachial] 85 Respiratory Rate 19 Blood Pressure [Left Arm] 158/71 H Blood Pressure Mean [Left Arm] 100 Blood Pressure Source [Left Arm] Automatic Cuff Blood Pressure Position [Left Arm] Sitting 02 Sat by Pulse Oximetry 94 L Oxygen Delivery Method Room Air
[2024-01-17 12:35] VITALS: BP 158/71; PULSE 85; RESP 19; TEMP 36.9; O2SAT 94
== END 2024-01-17 12:37 | disposition home or self-care (01) ==
PROVIDERS: Emergency Provider Nurse Practitioner Family; PCP Family Medicine
DX: J01.90 Acute sinusitis, unspecified (principal); R05.9 Cough, unspecified
CPT/HCPCS: 99212; 99214; G0463

== ENCOUNTER 2024-05-13 11:53 | Day surgery (SDC) | payer BC, SELFPAY ==
[2024-05-06 13:01] VITALS: BMI 40.0
[2024-05-13 12:04] VITALS: BP 165/95; PULSE 119; RESP 18; TEMP 36.3; O2SAT 97
[2024-05-13] MEDS: LACTATED RINGERS 1000ML 1,000 ML 25 ML IV (12:22)
[2024-05-13 12:29] VITALS: O2SAT 100
--- NOTE | 2024-05-13 12:29 | P.PNANES_ITS ---
[facility] Disclaimer: The information contained in this section may have been updated after the patient was seen, as this information can be updated by other users. Medical History HTN (hypertension) Abnormal nuclear cardiac imaging test Elevated LFTs Abnormal electrocardiogram [ECG] [EKG] Depression Anxiety Surgical History [place] teeth extracted History of tubal ligation Family History Other Heart disease Kidney disease Social History Smoking Status: Never smoker alcohol intake: current alcohol intake frequency: a few times a month substance use type: denies use current occupational status: other Travel in the last 8 weeks: None caffeine: Yes physical activity: walking do you feel safe at home: Yes victim of physical abuse: No victim of emotional abuse: No victim of sexual abuse: No would you like helpful sources: No Have you lived/traveled outside US in past 30 days?: No Contact w/someone who lives/traveled outside US past 30 days?: No Exposure to someone with infectious disease in past 14 days?: No Do you have a fever (greater than 100.4 F or 38 C)?: No Have you tested positive for COVID-19: No Exposed to someone with COVID-19 in past 14 days?: No Do you have a sore throat?: No Do you have a cough?: No Do you have any weakness?: No Are you experiencing any nausea/vomitting?: No Do you have any diarrhea?: No Are you experiencing any unusual bleeding?: No Do you have any muscle aches/pain?: No Do you have any abdominal pain?: No Are you experiencing loss of taste or smell?: No [facility] Anesthesia Checklist Patient Identification Patient Identification: Arm Band Structural Data Admitted From: Home Planned Operative Procedure/s: Colonoscopy Consent for Planned Operative Procedure(s) Verified: Yes Verified Documents: Surgical Consent and History and Physical NPO Status Verified Time NPO: 10:30 (water sips) Additional verifications Anesthesia Reactions: No Hx Blood Transfusions: No Blood Transfusion Reaction: No Airway Assessment Mallampati Score:: Class II C-Spine Mobility Assessed: Yes TMJ Mobility Assessed: Yes Dentition: Good Dentition Neurological Assessment Level of Consciousness: Awake, Alert and Appropriate Anesthesia Plan Anesthesia Risk discussed: Yes Anesthesia Plan: Verified ASA Class: III Anesthesia Type: MAC
--- NOTE | 2024-05-13 12:31 | P.HP_ITS ---
History of Present Illness *Admission Date: 05/13/24 *Reason for visit:: Screening for colon cancer *History of present illness: Mrs. Be is a 58-year-old female who is here for initial screening colonoscopy. The examination is deemed medically necessary for screening. The patient has been seen, interviewed and examined prior to the procedure by both myself and the anesthesia provider. [facility] Disclaimer: The information contained in this section may have been updated after the patient was seen, as this information can be updated by other users. Medical History (Updated 05/13/24 @ 12:34 by Jovi Cantu II, MD) Colon cancer screening HTN (hypertension) Abnormal nuclear cardiac imaging test Elevated LFTs Abnormal electrocardiogram [ECG] [EKG] Depression Anxiety Surgical History [place] teeth extracted History of tubal ligation Family History Other Heart disease Kidney disease Social History Smoking Status: Never smoker alcohol intake: current alcohol intake frequency: a few times a month substance use type: denies use current occupational status: other Travel in the last 8 weeks: None caffeine: Yes physical activity: walking do you feel safe at home: Yes victim of physical abuse: No victim of emotional abuse: No victim of sexual abuse: No would you like helpful sources: No Have you lived/traveled outside US in past 30 days?: No Contact w/someone who lives/traveled outside US past 30 days?: No Exposure to someone with infectious disease in past 14 days?: No Do you have a fever (greater than 100.4 F or 38 C)?: No Have you tested positive for COVID-19: No Exposed to someone with COVID-19 in past 14 days?: No Do you have a sore throat?: No Do you have a cough?: No Do you have any weakness?: No Are you experiencing any nausea/vomitting?: No Do you have any diarrhea?: No Are you experiencing any unusual bleeding?: No Do you have any muscle aches/pain?: No Do you have any abdominal pain?: No Are you experiencing loss of taste or smell?: No Other Medical History Have you received the Flu Vaccine for this season: No Have you received the Pneumonia Vaccine: No Review of Systems Review of Systems Review of systems (narrative): Negative *Cardiovascular Comments: Negative *Gastrointestinal Comments: Negative *Genitourinary Comments: Negative *Musculoskeletal Comments: Negative *Neurologic Comments: Negative Meds Home Medications and Allergies Home Medications ?Medication ?Instructions ?Recorded ?Confirmed ?Type alprazolam 0.25 mg tablet 0.25 mg PO DAILY 01/17/24 05/06/24 History duloxetine 60 mg capsule,delayed 60 mg PO DAILY 01/17/24 05/13/24 History release metoprolol succinate 25 mg 25 mg PO DAILY 01/17/24 05/13/24 History tablet,extended release 24 hr naproxen 500 mg tablet 500 mg PO DAILY 01/17/24 05/13/24 History amlodipine 5 mg tablet 5 mg PO DAILY #30 tabs 03/23/24 05/06/24 Rx New Prescriptions to Start Prescriptions: Allergies Allergy/AdvReac Type Severity Reaction Status Date / Time No Known Allergies Allergy Verified 05/13/24 12:01 Exam Data for Last 24 hours Vital signs and Labs for Last 24 Hours: Temp Pulse Resp BP Pulse Ox O2 Del Method O2 Flow Rate 97.3 F L 119 H 18 165/95 H 97 Nasal Cannula 5 05/13/24 12:04 05/13/24 12:04 05/13/24 12:04 05/13/24 12:04 05/13/24 12:04 05/13/24 12:29 05/13/24 12:29 *Routine HEENT Exam Head: Present normocephalic Eye: Present EOMI and PERRL ENT: Present mucous membranes moist *Routine Neck Exam Neck: Present supple *Routine Respiratory Exam Respiratory: Present CTA bilaterally *Routine Cardiovascular Exam Cardiovascular: Present RRR *Routine Abdominal Exam Abdominal: Present soft and normoactive bowel sounds; Absent tenderness *Routine Rectal Exam Rectal:: deferred *Routine Genitalia Exam Genitalia:: deferred *Routine Extremities Exam Extremities: Absent cyanosis, clubbing or edema *Routine Skin Exam Skin: Present warm; Absent rash *Routine Neurological Exam Neurological: Present alert and oriented X3 Assessment and Plan *Assessment and plan (1) Colon cancer screening: Status: Acute Category: Medical Code(s): Z12.11 - Encounter for screening for malignant neoplasm of colon Plan A/P: 1. Screening for colon cancer is the preprocedural diagnosis. The patient will be anesthetized/sedated using MAC sedation. The patient has been seen and examined. Cardiac and lung assessment prior to the examination is stable. Proceed with planned screening colonoscopy
--- NOTE | 2024-05-13 12:34 | P.PCN_ITS ---
[facility] Procedure Note Date: 05/13/24 Time: 12:46 Procedure Note:: Colonoscopy Procedure Report: Colonoscopy Endoscopist: Jovi Cantu II, MD Referring physician: Victor Manuel Chauhan MD Date of Procedure: May 13, 2024 Equipment: Olympus 190 variable stiffness pediatric colonoscope Sedation: MAC sedation Indication: Ms. Be is a 58-year-old female who is here for initial screening colonoscopy. She reports no abdominal pain, weight loss, change in her bowel habits or rectal bleeding. She reports no family history of colon cancer. Procedure: Prior to the procedure, a history and physical exam was performed, and patient's medications and allergies were reviewed. The risks, benefits and alternatives of the sedation and procedure were discussed with the patient. All questions were answered and informed consent was obtained. The patient was brought to the procedure room. Patient identification and proposed procedure were verified by the physician and the nurse. The patient was placed in a left lateral decubitus position and the scope was passed under direct vision. Throughout the procedure, the patient's blood pressure, pulse, and oxygen saturations were monitored continuously. The colonoscopy was accomplished without difficulty. The patient tolerated the procedure well. Findings: On digital rectal examination there was normal rectal tone. There were no external hemorrhoids. The colonoscope was introduced through the anal canal to the rectum and advanced to the cecum. The ileocecal valve and appendiceal orifice were identified. The scope was advanced a short distance into the ileum which appeared grossly normal. The scope was then withdrawn into the colon. The cecum, ascending and transverse colon and mucosa were grossly normal. There were scattered diverticuli throughout the descending and sigmoid colon (LEFT colon). The rectum itself was normal. Upon retroflexion within the rectum there were grade 1-2 internal hemorrhoids. The preparation was excellent throughout with [place] Preparation Score of 9. The cecal time was 10 minutes. Impression: 1. Left-sided diverticulosis 2. Grade 1-2 internal hemorrhoids Plan: The patient will not require surveillance colonoscopy again for 10 years by ACS guidelines. I would encourage bulking psyllium fiber supplementation on a maintenance basis.
[2024-05-13 12:47] VITALS: BP 131/75; PULSE 98; RESP 16; TEMP 36.3; O2SAT 92
[2024-05-13 12:57] VITALS: BP 115/77; PULSE 97; RESP 16; O2SAT 94
[2024-05-13 13:07] VITALS: BP 119/56; PULSE 95; RESP 16; O2SAT 97
[2024-05-13 13:15] VITALS: BP 131/80; PULSE 87; RESP 16; O2SAT 98
== END 2024-05-13 13:16 | disposition home or self-care (01) ==
PROVIDERS: PCP Family Medicine; Visit Provider Internal Medicine Gastroenterology
PROC: (CPT 45378; principal; 2024-05-13 13:30)
DX: K57.30 Diverticulosis of large intestine without perforation or abscess without bleeding (principal); K64.8 Other hemorrhoids; Z12.11 Encounter for screening for malignant neoplasm of colon
CPT/HCPCS: 45378; J7120

== ENCOUNTER 2024-07-20 07:57 | Outpatient (CLI) | payer BC, SELFPAY ==
--- NOTE | 2024-07-20 07:58 | MM_ITS ---
PROCEDURE INFORMATION: Exam: MG Bilateral Screening 3D Mammography Exam date and time: 07/20/2024 8:06 AM Age: 59 years old Clinical indication: Screening mammogram TECHNIQUE: Imaging protocol: Bilateral Screening tomosynthesis and 2D mammography including computer-aided detection (CAD) when performed. COMPARISON: 1. MG MM DIG SCREENING MAMM BI W/CAD 12/18/2022 10:18 AM 2. MG MM DIG SCREENING MAMM BI W/CAD 07/21/2019 4:51 PM 3. MG DMSB DIG MAMM-SCREEN SOL 09/21/2013 4:48 PM 4. MG DIGMAMMS MAMMOGRAM SCREEN-RELATIONSHIP MGR N/C 08/14/2009 9:26 AM FINDINGS: MAMMOGRAPHY: Breast composition: The breasts are almost entirely fatty. Mass: None. Architectural distortion: No new or suspicious architectural distortion. Calcifications: No new or suspicious calcifications are present Asymmetric density: No new or suspicious asymmetric density is present Skin thickening: None. Axillary adenopathy: None. IMPRESSION: No mammographic evidence of malignancy. Recommend annual screening mammography unless otherwise clinically indicated. ASSESSMENT: BI-RADS category 1: Negative.
== END 2024-07-20 23:59 | disposition home or self-care (01) ==
LOC: RAD 07:57
PROVIDERS: PCP Family Medicine; Visit Provider Physician Assistant
DX: Z12.31 Encounter for screening mammogram for malignant neoplasm of breast (principal)
CPT/HCPCS: 77063; 77067

== ENCOUNTER 2025-03-15 15:38 | Outpatient (CLI) | payer BC, SELFPAY ==
[2025-03-15 20:44] LABS: Coronavirus 19, PCR Not Detected (NotDetected); Influenza A, PCR Not Detected (NotDetected); Influenza B, PCR Not Detected (NotDetected)
--- OUTSIDE RECORDS SUMMARY | 2025-03-17 15:43 | XMS_ITS | Clinical Summary ---
Author Organization Healthcare Address [address] [place] [address] Care Team Providers Care Facilities Assistant Name Role Phone Christopher Chauhan MD Primary Care Provider [phone] Allergies No known active allergies Medications ALPRAZolam (Xanax) 0.25 MG tablet TAKE 1/2 TABLET BY MOUTH EVERY MORNING AND 1 TABLET BY MOUTH EVERY EVENING Active DULoxetine (Cymbalta) [address] capsule Take 1 capsule (60 mg) by mouth 1 (one) time each day. 4 Active metoprolol succinate XL (Toprol-XL) 25 MG 24 hr tablet Take 1 tablet (25 mg) by mouth 1 (one) time each day. 4 Active Na Sulfate-K Sulfate-Mg Sulf 17.5-3.13-1.6 GM/177ML solution 4 Active triamcinolone (Kenalog) 0.1 % cream APPLY CREAM EXTERNALLY TWICE DAILY 4 Active DULOXETINE & LIDOCAINE-MENTH OL CO 60 mg. 3 Active naproxen (Naprosyn) 500 MG tablet TAKE 1 TABLET BY MOUTH TWICE DAILY WITH MEALS 60 tablet 4 Active naproxen (Naprosyn) 500 MG tablet TAKE 1 TABLET BY MOUTH TWICE DAILY WITH MEALS 50 tablet 4 Active Active Problems Problem Noted Date Diagnosed Date Obesity (BMI 35.0-39.9 without comorbidity) 08/11 Severe obesity (BMI 35.0-39.9) with comorbidity 09/01/2023 Social History Tobacco Use Types Packs/Day Years Used Date Smoking Tobacco: Never Smokeless Tobacco: Never Comments Unknown Sex and Gender Information Value Date Recorded Sex Assigned at Not on file Legal Sex Female 3:11 PM EDT Gender Identity Not on file Sexual Orientation Not on file Last Filed Vital Signs Vital Sign Reading Time Taken Comments Blood Pressure 133/83 09/01/2023 2:06 PM EDT Pulse 85 09/01/2023 2:06 PM EDT Temperature - - Respiratory Rate - - Oxygen Saturation 95% 09/01/2023 2:06 PM EDT Inhaled Oxygen Concentration - - Weight 94.8 kg (208 lb 15.9 oz) 09/01/2023 2:06 PM EDT Height 154.9 cm (5' 1 ) 09/01/2023 2:06 PM EDT Body Mass Index 39.49 09/01/2023 2:06 PM EDT Plan of Treatment Health Maintenance Due Date Last Done Comments [facility]-Depression Screening 1966 [facility]-HIV Screening 1966 [facility]-Hepatitis C Screening 1966 [facility]-Infant/Child/Adol SDOH Screenings 1966 [facility]- SDOH Screenings 1984 [facility]-Adult SDOH Screenings 1984 [facility]-Hepatitis B Vaccines (1 of 3 - 19+ 3-dose series) 1985 [facility]-Pap Smear 07/21/1987 [facility]-Cervical Cancer Screening 1996 [facility]-HPV/Cotest 1996 CT Colonography 07/21/2011 Colonoscopy 07/21/2011 FIT-DNA 07/21/2011 FIT 07/21/2011 FOBT 07/21/2011 Sigmoidoscopy 07/21/2011 [facility]-Colorectal Cancer Screening 07/21/2011 [facility]-Breast Cancer Screening 2016 [facility]-Pneumococcal Vaccine: 50 + Years (1 of 1 - PCV) 2016 [facility]-Zoster Vaccines (1 of 2) 2016 [id number] Vaccine (3 - 2024- season) 2025 02/14/2021, 01/24/2021 [facility]-Influenza Vaccine (#1) 2025 [facility]-DTaP,Tdap,and Td Vaccine s (2 - Td or Tdap) 02/10/2032 02/09/2022 [facility]-Obesity Intervention Completed 09/01/2023 HPV Vaccines Aged Out No longer eligi ble based on patient's age to complete this topic [facility]-HIB Vaccines Aged Out No longer e ligible based on patient's age to complete this topic [facility]-Hepatitis A Vaccines Aged Out No longer eligible based on patient's age to complete this topic [facility]-IPV Vaccines Aged Out No longer e ligible based on patient's age to complete this topic [facility]-Rotavirus Vaccines Aged Out No lo nger eligible based on patient's age to complete this topic Insurance ANTH Care Teams Facilities Assistant Relationship Specialty Start Date End Date Christopher Chauhan MD [address] [place] [id number] PCP - General 08/26/23
== END 2025-03-15 23:59 | disposition home or self-care (01) ==
LOC: LAB.DROPOF 03-17 15:38
PROVIDERS: PCP Family Medicine; Visit Provider Nurse Practitioner
DX: J06.9 Acute upper respiratory infection, unspecified (principal)
CPT/HCPCS: 87631

== ENCOUNTER 2025-03-23 06:01 | Day surgery (SDC) | payer BC, SELFPAY ==
--- NOTE | 2025-03-20 10:54 | EXP.HP ---
History of Present Illness *Admission Date: 03/23/25 *History of present illness: Mrs. Be is a 59-year-old female who is here for diagnostic EGD. The patient reports having dysphagia for about a year. She reports food getting along the lower retrosternal region. She may get some relief with belching. She will sometimes have to regurgitate. This is occurring about once a week. She does get heartburn once weekly as well and takes TUMS. This is her first upper endoscopy. The examination is deemed medically necessary for diagnostic EGD. The patient has been seen, interviewed and examined prior to the procedure by both myself and the anesthesia provider. [facility] Disclaimer: The information contained in this section may have been updated after the patient was seen, as this information can be updated by other users. Medical History Viral upper respiratory infection Sinusitis Colon cancer screening HTN (hypertension) Abnormal nuclear cardiac imaging test Elevated LFTs Abnormal electrocardiogram [ECG] [EKG] Depression Anxiety Surgical History [place] teeth extracted History of tubal ligation Family History Other Heart disease Kidney disease Social History Smoking Status: Never smoker alcohol intake: current alcohol intake frequency: a few times a month substance use type: denies use current occupational status: other Travel in the last 8 weeks?: None caffeine: Yes physical activity: walking do you feel safe at home: Yes victim of physical abuse: No victim of emotional abuse: No victim of sexual abuse: No would you like helpful sources: No Have you lived/traveled outside [place] in past 30 days?: No Contact w/someone who lives/traveled outside [place] past 30 days?: No Exposure to someone with infectious disease in past 14 days?: No Do you have a fever (greater than 100.4 F or 38 C)?: No Have you tested positive for COVID-19?: No Exposed to someone with COVID-19 in past 14 days?: No Do you have a sore throat?: No Do you have a cough?: No Do you have any weakness?: No Do you have any diarrhea?: No Are you experiencing any unusual bleeding?: No Do you have any muscle aches/pain?: No Do you have any abdominal pain?: No Are you experiencing loss of taste or smell?: No Other Medical History Have you received the Flu Vaccine for this season: No Have you received the Pneumonia Vaccine: No Review of Systems Review of Systems Review of systems (narrative): Negative *Cardiovascular Comments: Negative *Gastrointestinal Comments: Negative *Genitourinary Comments: Negative *Musculoskeletal Comments: Negative *Neurologic Comments: Negative Meds Home Medications and Allergies Home Medications ?Medication ?Instructions ?Recorded ?Confirmed ?Type alprazolam 0.25 mg tablet 0.25 mg PO DAILY 01/17/24 03/23/25 History duloxetine 60 mg capsule,delayed 60 mg PO DAILY 01/17/24 03/23/25 History release metoprolol succinate 25 mg 25 mg PO DAILY 01/17/24 03/23/25 History tablet,extended release 24 hr amlodipine 5 mg tablet See Rx Instructions .Route 06/15/24 03/23/25 Rx .COMPLEX #90 tabs cholecalciferol (vitamin D3) 50 50 mcg PO DAILY 01/31/25 03/23/25 History mcg (2,000 unit) capsule naproxen 500 mg tablet 500 mg PO DAILY PRN Pain 01/31/25 03/23/25 History azithromycin 250 mg tablet See Rx Instructions PO .COMPLEX #6 03/16/25 03/23/25 Rx (Zithromax Z-Arnoldo) tabs New Prescriptions to Start Prescriptions: Allergies Allergy/AdvReac Type Severity Reaction Status Date / Time No Known Allergies Allergy Verified 03/15/25 18:05 Exam *Routine HEENT Exam Head: Present normocephalic Eye: Present EOMI and PERRL ENT: Present mucous membranes moist *Routine Neck Exam Neck: Present supple *Routine Respiratory Exam Respiratory: Present CTA bilaterally *Routine Cardiovascular Exam Cardiovascular: Present RRR *Routine Abdominal Exam Abdominal: Present soft and normoactive bowel sounds; Absent tenderness *Routine Rectal Exam Rectal:: deferred *Routine Genitalia Exam Genitalia:: deferred *Routine Extremities Exam Extremities: Absent cyanosis, clubbing or edema *Routine Skin Exam Skin: Present warm; Absent rash *Routine Neurological Exam Neurological: Present alert and oriented X3 Assessment and Plan *Assessment and plan (1) Dysphagia: Status: Acute Category: Medical Code(s): R13.10 - Dysphagia, unspecified (2) Regurgitation of food: Status: Acute Category: Medical Code(s): R11.10 - Vomiting, unspecified Plan A/P: 1. Dysphagia is the preprocedural diagnosis. The patient will be anesthetized/sedated using MAC sedation. The patient has been seen and examined. Cardiac and lung assessment prior to the examination is stable. Proceed with planned diagnostic EGD.
[2025-03-22 12:32] VITALS: BMI 41.0
[2025-03-23 06:16] VITALS: BP 147/82; PULSE 94; RESP 18; TEMP 36.5; O2SAT 97
[2025-03-23] MEDS: LACTATED RINGERS 1000ML 1,000 ML 50 ML IV (06:36)
--- NOTE | 2025-03-23 06:48 | EXP.ANES.CKL ---
[facility] Disclaimer: The information contained in this section may have been updated after the patient was seen, as this information can be updated by other users. Medical History Viral upper respiratory infection Sinusitis Colon cancer screening HTN (hypertension) Abnormal nuclear cardiac imaging test Elevated LFTs Abnormal electrocardiogram [ECG] [EKG] Depression Anxiety Surgical History [place] teeth extracted History of tubal ligation Family History Other Heart disease Kidney disease Social History Smoking Status: Never smoker alcohol intake: current alcohol intake frequency: a few times a month substance use type: denies use current occupational status: other Travel in the last 8 weeks?: None caffeine: Yes physical activity: walking do you feel safe at home: Yes victim of physical abuse: No victim of emotional abuse: No victim of sexual abuse: No would you like helpful sources: No Have you lived/traveled outside [place] in past 30 days?: No Contact w/someone who lives/traveled outside [place] past 30 days?: No Exposure to someone with infectious disease in past 14 days?: No Do you have a fever (greater than 100.4 F or 38 C)?: No Have you tested positive for COVID-19?: No Exposed to someone with COVID-19 in past 14 days?: No Do you have a sore throat?: No Do you have a cough?: No Do you have any weakness?: No Do you have any diarrhea?: No Are you experiencing any unusual bleeding?: No Do you have any muscle aches/pain?: No Do you have any abdominal pain?: No Are you experiencing loss of taste or smell?: No [facility] Anesthesia Checklist Patient Identification Patient Identification: Arm Band and Family Structural Data Admitted From: Home Planned Operative Procedure/s: EGD Consent for Planned Operative Procedure(s) Verified: Yes Verified Documents: Surgical Consent NPO Status Verified Time NPO: 00:00 Additional verifications Patient : No Anesthesia Reactions: No Hx Blood Transfusions: No Blood Transfusion Reaction: No Cephalosporin Allergy: No Previous Colonoscopy: Yes Neurological Assessment Level of Consciousness: Awake, Alert, Appropriate and Follows Commands Hx Seizures: No Numbness or tingling in extremities: No Anesthesia Plan Anesthesia Risk discussed: Yes ASA Class: II Anesthesia Type: MAC Preoperative Comments Pre-Operative Comments: Takes metoprolol, probably for heart rate control. Denies hypertention.
--- NOTE | 2025-03-23 06:56 | P.PCN_ITS ---
[facility] Procedure Note Date: 03/23/25 Time: 07:50 Procedure Note:: Upper Endoscopy Procedure Report: Esophagogastroduodenoscopy with cold biopsies and TTS balloon dilation and submucosal injection (epinephrine) Endoscopost: Jovi Cantu II, MD Referring Physician: Cade Chauhan MD Date of Procedure: March 23, 2025 Equipment: Olympus GIF-1100 standard upper endoscope Sedation: MAC sedation Indications: Mrs. Be is a 59-year-old female who is here for diagnostic EGD. The patient reports having dysphagia for about a year and this is primarily to solids (breads and meats). She reports food getting along the lower retrosternal region. She does get relief with belching. She will seldomly have to regurgitate food. This is occurring about once a week. She does get heartburn once weekly as well and takes TUMS. This is her first upper endoscopy. She reports no bloating and reports regular bowel function. The examination is deemed medically necessary for diagnostic EGD. Procedure: Prior to the procedure, a history and physical exam was performed, and patient's medications and allergies were reviewed. The risks, benefits and alternatives of the sedation and procedure were discussed with the patient. All questions were answered and informed consent was obtained. The patient was brought to the procedure room. Patient identification and proposed procedure were verified by the physician and the nurse. The patient was placed in a left lateral decubitus position and the scope was passed under direct vision. Throughout the procedure, the patient's blood pressure, pulse, and oxygen saturations were monitored continuously. The upper GI endoscopy was accomplished without difficulty. The patient tolerated the procedure well. Findings: The scope was passed directly into the upper esophagus and advanced to the third portion of the duodenum. The post bulbar duodenum, ampulla and duodenal bulb were normal with normal mucosa and conniventes. 2 cold biopsies were taken from the second portion of the duodenum for the disaccharidase assay. The scope was withdrawn through a normal duodenal bulb and pylorus into the stomach. There was some mild linear reactive gastropathy of the antrum. The body and fundus of the stomach were normal. Cold biopsies were taken from the antrum. Upon retroflexion there was a 2 cm hiatal hernia. The scope was then withdrawn into the esophagus. There was distal erosive esophagitis with linear superficial erosions and linear ulceration consistent with grade C?D reflux esophagitis (LA classification). There was also a peptic stricture. There was no obvious Ortiz's esophagus. The peptic stricture was dilated from 18 to 20 mm with a TTS hydrostatic balloon. There was some submucosal oozing of blood at the dilation site so 2 cc of 1-10,000 epinephrine was injected submucosally with hemostasis. The remainder of the mid and proximal esophageal mucosa was normal. Impression: 1. Grade C?D reflux esophagitis with peptic stricture status post dilation to 20 mm 2. Small 2 cm hiatal hernia 3. Mild linear antral gastropathy Plan: The patient does have complicated GERD with the reflux esophagitis and I would recommend PPI therapy or Voquezna. I will discuss the findings with the patient and family. I will follow-up the biopsies and disaccharidase assay.
[2025-03-23 07:56] VITALS: BP 143/73; PULSE 108; RESP 18; TEMP 36.2; O2SAT 95
[2025-03-23 08:06] VITALS: BP 106/59; PULSE 99; RESP 16; TEMP 36.2; O2SAT 95
[2025-03-23 08:16] VITALS: BP 110/67; PULSE 93; RESP 18; O2SAT 97
[2025-03-23 08:21] VITALS: BP 110/65; PULSE 91; RESP 18; O2SAT 98
[2025-03-28 18:28] LABS: Interpretation Notes (.); Lactase 15.8 (>/= 14.0); Maltase 99.82 (>/= 110.0); Palatinase 15.8 (>/= 8.5); Reference Notes (.); Sucrase 25.78 (>/= 25.0)
== END 2025-03-23 08:23 | disposition home or self-care (01) ==
PROVIDERS: PCP Family Medicine; Visit Provider Internal Medicine Gastroenterology
PROC: 0DJ08ZZ Inspection of Upper Intestinal Tract, Via Natural or Artificial Opening Endoscopic (ICD-10-PCS; CPT 43239; principal; 2025-03-23 07:30)
DX: K22.2 Esophageal obstruction (principal); K21.00 Gastro-esophageal reflux disease with esophagitis, without bleeding; K31.89 Other diseases of stomach and duodenum; K44.9 Diaphragmatic hernia without obstruction or gangrene; I10 Essential (primary) hypertension
CPT/HCPCS: 43239; 43249; 82657; C1726; J2003; J2704; J7120